=== PATIENT | male | born 2000 | race Two or more races ===

== ENCOUNTER 2024-04-22 22:41 | Emergency (ER) | payer MEDICAID, SELFPAY ==
[2024-04-22 22:44] VITALS: BMI 24.7
[2024-04-22 23:39] VITALS: BP 130/86; PULSE 85; RESP 18; TEMP 36.6; O2SAT 98
--- NOTE | 2024-04-22 23:54 | PD.EDNV ---
Nausea/Vomit./Diarrhea-RME/HPI General Chief complaint: Nausea/Vomiting/Diarrhea Stated complaint: NV and numbness to right arm x 20 min ago. Time Seen by Provider: 04/22/24 23:27 Source: patient Arrival date/time: 04/22/24 22:41 23-year-old male past medical history of anxiety presents emergency department complaining of nausea vomiting and intermittent numbness to right arm that occurred 20 minutes ago. Patient reports has had similar episodes in the past but it has been a year since previous episode. Patient denies any fever, chills, diarrhea, chest pain, shortness of breath, cough, or any other associated symptom. Mode of arrival: ambulatory Limitations: no limitations Related Data Previous Rx's ?Medication ?Instructions ?Recorded cephalexin 500 mg capsule 500 mg PO QID #40 caps 05/12/23 potassium chloride 20 mEq 40 meq (2 x 20 mEq) PO BID #10 tabs 05/12/23 tablet,extended release naproxen 500 mg tablet 500 mg PO BID PRN pain #30 tabs 09/09/23 ibuprofen 800 mg tablet 800 mg PO Q8H PRN pain #20 tabs 09/10/23 metformin 500 mg tablet 500 mg PO BID #30 tabs 10/20/23 ibuprofen 600 mg tablet 600 mg PO Q8H PRN fever or pain 12/01/23 #30 tabs nirmatrelvir 300 mg (150 mg See Rx Instructions PO .COMPLEX 12/01/23 x2)-ritonavir 100 mg tablet,dose #30 tabs pack (Paxlovid) ondansetron 4 mg disintegrating 4 mg PO Q8H PRN nausea and 04/23/24 tablet vomiting #7 tabs Allergies Allergy/AdvReac Type Severity Reaction Status Date / Time No Known Allergies Allergy Verified 12/01/23 15:53 Review of Systems Review of Systems Systems Reviewed: All systems reviewed, normal except as documented Constitutional Constitutional: Reports system reviewed and no additional complaints, except as documented, Denies body ache(s), Denies chills and Denies fever(s) Eyes Eyes: Reports system reviewed and no additional complaints, except as documented and Denies change in vision ENT Ears, Nose, Mouth, and Throat: Reports system reviewed and no additional complaints, except as documented, Denies disequilibrium, Denies dizziness, Denies sore throat and Denies vertigo Cardiovascular Cardiovascular: Reports system reviewed and no additional complaints, except as documented, Denies chest pain and Denies dyspnea Respiratory Respiratory: Reports system reviewed and no additional complaints, except as documented, Denies chest congestion, Denies cough and Denies dyspnea Gastrointestinal Gastrointestinal: Reports system reviewed and no additional complaints, except as documented, Denies abdominal pain, Reports nausea and Reports vomiting Musculoskeletal Musculoskeletal: Reports system reviewed and no additional complaints, except as documented, Denies abnormal gait, Denies arthralgias and Reports numbness Integumentary/Breasts Skin/Breast: Reports system reviewed and no additional complaints, except as documented, Denies erythema, Denies rash and Denies wounds Neurologic Neurologic: Reports system reviewed and no additional complaints, except as documented, Denies abnormal gait, Denies disequilibrium, Denies dizziness, Reports numbness and Denies vertigo Past Medical History Past Medical History CARDIAC: Negative Congestive Heart Failure RESPIRATORY: Negative Chronic Obstructive Pulmonary Disease (COPD) GENITOURINARY: Negative Renal Disease ENDOCRINE: Negative Diabetes Mellitus Type 1 or Diabetes Mellitus Type 2 PSYCHO/SOCIAL: Positive Anxiety Social History SMOKING STATUS: Never smoker ED Exam General Limitations: Present no limitations General appearance: Present alert and in no apparent distress Head Head exam: Present atraumatic Eye Eye exam: Present normal appearance, PERRL and EOMI ENT ENT exam: Present normal exam, normal oropharynx and mucous membranes moist Neck Neck exam: Present normal inspection, full ROM and trachea midline Chest Chest inspection: Present normal inspection and symmetric chest wall rise Respiratory Respiratory exam: Present normal lung sounds bilaterally Cardiovascular Cardiovascular exam: Present regular rate, normal rhythm and normal heart sounds Abdominal Exam Abdominal exam: Present soft and normal bowel sounds Extremities Exam Extremities exam: Present normal inspection and full ROM Back Exam Back exam: Present normal inspection and full ROM Neurological Exam Neurological exam: Present alert, oriented X3 and CN II-XII intact Psychiatric Psychiatric exam: Present normal affect and normal mood Skin Skin exam: Present warm, dry, intact and normal color Course Quality Measures none Orders Category Date Time Status Bedside Influenza A&B Antigen Test NOW Care 04/22/24 23:53 Completed Ondansetron Odt [Zofran Odt] Med 04/22/24 23:57 Discontinued 4 mg PO X1 ONE Vital Signs Vital signs: Vital Signs Temperature 98 F 04/22/24 23:39 Pulse Rate 85 04/22/24 23:39 Respiratory Rate 18 04/22/24 23:39 Blood Pressure 130/86 H 04/22/24 23:39 Pulse Oximetry (%) 98 04/22/24 23:39 Oxygen Delivery Method Room Air 04/22/24 23:39 98% room air within normal limits Nausea/Vomiting/Diarrhea MDM Narrative MDM Narrative:: 23-year-old male past medical history of anxiety presents emergency department complaining of nausea vomiting and intermittent numbness to right arm that occurred 20 minutes ago. Patient reports has had similar episodes in the past but it has been a year since previous episode. Patient denies any fever, chills, diarrhea, chest pain, shortness of breath, cough, or any other associated symptom. Patient appears nontoxic and is hemodynamic stable. Limits his lungs on auscultation. Abdomen is soft and nontender. Patient likely has viral gastroenteritis. Patient data External records reviewed:: [facility] previous records Clinical information provided by:: patient Social determinants that could affect healthcare access:: none Patient has the following chronic illnesses:: Anxiety How is presenting disease/condition affected by chronic disease/condition?: exacerbated by Evaluation data The following diagnostics were reviewed and interpreted by me:: lab results Lab and/or radiology exams considered but not ordered:: Ordered Interpretation Summary: Interpreted by me Medications / Prescriptions Medications / Prescriptions considered but not ordered:: N/A Medication administrations:: Medication Administration History Discontinued Medications Ondansetron HCl (Ondansetron Odt 4 Mg Tabrap) 4 mg PO X1 ONE; Protocol Stop: 04/22/24 23:58 N/A Consultations Consultation(s) initiated? (list below): No Diagnosis Nausea Differential Diagnosis: traveler's diarrhea, food poisoning, gastroenteritis and dehydration Most likely diagnosis given after review of the tests above:: Viral gastroenteritis Admission Indicated Admission indicated?: not indicated Admission Request Was there a request for admission?: No Disposition Plan Disposition Plan: Discharge Discharge Attestation Discharge Attestation: The patient and all family members were given an opportunity to ask questions and understood the discharge instructions. Discharge instructions specifically effects, indications for sooner follow up or return to the emergency department, and the expected course of current diagnosis. Patient condition: Stable Discharge Plan Plan Patient Disposition: HOME (Self Care) Disposition Comment: Stable Prescriptions/Referrals Prescriptions/Med Rec: New ondansetron 4 mg tablet,disintegrating 4 mg PO Q8H PRN (Reason: nausea and vomiting) Qty: 7 0RF No Action naproxen 500 mg tablet 500 mg PO BID PRN (Reason: pain) Qty: 30 0RF metformin 500 mg tablet 500 mg PO BID Qty: 30 1RF Paxlovid 300 mg (150 mg x 2)-100 mg tablets,dose pack See Rx Instructions .ROUTE .COMPLEX Qty: 30 0RF Rx Instructions: take TWO 150 mg tablets of nirmatrelvir with ONE 100 mg tablet of ritonavir twice daily for 5 days ibuprofen 600 mg tablet 600 mg PO Q8H PRN (Reason: fever or pain) Qty: 30 0RF cephalexin 500 mg capsule 500 mg PO QID Qty: 40 0RF potassium chloride 20 mEq tablet extended release 40 meq PO BID Qty: 10 0RF ibuprofen 800 mg tablet 800 mg PO Q8H PRN (Reason: pain) Qty: 20 0RF Referrals: Binh Brown MD [Primary Care Provider] - In 1 week Problem List Clinical Impression: Viral gastroenteritis Patient/Caregiver Discharge Instructions Discharge Activity: activity as tolerated Education Materials: ED Gastroenteritis, Viral (Adult) Additional Instructions: Drink plenty of fluids and get plenty of rest. Take Zofran as needed for any nausea or vomiting. Follow-up with primary care provider in 2 to 3 days. Return to emergency department for any worsening symptoms or as needed. Print Language: [place] Islander Stand Alone Forms: [facility] Award Info., Patient Portal Info Letter PA/BABY NURSE Supervising Physician VLAD/FER Supervising Physician: Dr. Sahu
[2024-04-23] MEDS: ONDANSETRON ODT 4 MG TABRAP PO (00:47)
== END 2024-04-23 01:20 | disposition home or self-care (01) ==
PROVIDERS: Emergency Provider Emergency Medicine; PCP Family Medicine
DX: A08.4 Viral intestinal infection, unspecified (principal)
CPT/HCPCS: 87400; 99283; Q0162

== ENCOUNTER 2024-05-04 18:12 | Emergency (ER) | payer MEDICAID, SELFPAY ==
[2024-05-04 18:15] VITALS: BMI 20.8
[2024-05-04 18:18] VITALS: PULSE 140
[2024-05-04 18:23] VITALS: BP 176/82; PULSE 134; RESP 18; TEMP 36.8; O2SAT 99
[2024-05-04 18:42] VITALS: BP 138/71; PULSE 144; RESP 20; TEMP 36.6; O2SAT 99
--- NOTE | 2024-05-04 18:42 | EKG_ITS ---
[facility] Test Date: 2024-05-04 Pat Name: KAMRAN ENGEL Department: Room: - Gender: Male [employer]: : 2000 Requested By: Shoaib Pardo Order Number: [id number] Reading MD: Shoaib Pardo Measurements Intervals [place] Rate: 135 P: 17 OK: 135 QRS: 93 QRSD: 98 T: 33 QT: 305 QTc: 457 Interpretive Statements SINUS TACHYCARDIA BORDERLINE RIGHT AXIS DEVIATION [QRS AXIS > 90] ABNORMAL RHYTHM ECG Compared to ECG 08/31/2023 13:50:51 No significant changes /store/S0/[id number].pdf
--- NOTE | 2024-05-04 18:43 | EDNOTE_ITS ---
ED Anxiety RME/HPI General Chief Complaint: Anxiety Stated Complaint: ANXIETY Time Seen by Provider: 05/04/24 18:36 Arrival date/time: 05/04/24 18:12 RME / HPI RME / HPI narrative: 24-year-old male patient with significant history of anxiety in the past, came in for evaluation regarding palpitation. Patient told me that he has been having palpitation, jittery, and abdominal discomfort has been ongoing for the last several hours. Patient denies any alcohol abuse denies any use of drugs. Denies any fever denies any cough denies any other complaints patient was taken prior to arrival. Related Data Previous Rx's ?Medication ?Instructions ?Recorded cephalexin 500 mg capsule 500 mg PO QID #40 caps 05/12/23 potassium chloride 20 mEq 40 meq (2 x 20 mEq) PO BID #10 tabs 05/12/23 tablet,extended release naproxen 500 mg tablet 500 mg PO BID PRN pain #30 tabs 09/09/23 ibuprofen 800 mg tablet 800 mg PO Q8H PRN pain #20 tabs 09/10/23 metformin 500 mg tablet 500 mg PO BID #30 tabs 10/20/23 ibuprofen 600 mg tablet 600 mg PO Q8H PRN fever or pain 12/01/23 #30 tabs nirmatrelvir 300 mg (150 mg See Rx Instructions PO .COMPLEX 12/01/23 x2)-ritonavir 100 mg tablet,dose #30 tabs pack (Paxlovid) ondansetron 4 mg disintegrating 4 mg PO Q8H PRN nausea and 04/23/24 tablet vomiting #7 tabs lorazepam 0.5 mg tablet (Ativan) 0.5 mg PO BID PRN anxiety #15 tabs 05/04/24 Allergies Allergy/AdvReac Type Severity Reaction Status Date / Time No Known Allergies Allergy Verified 05/04/24 18:16 Review of Systems Review of Systems Narrative Review of Systems: Review of system reviewed and within normal limits except mentioned in HPI ED Exam Narrative Physical exam: VITAL SIGNS: Reviewed. GENERAL APPEARANCE: Alert and interactive, follows commands, no acute distress, anxious, jittery HEAD AND FACE: Non-traumatic. ENT: PERRL, pink conjunctivitis, eyelid no trauma, Mucous membrane moist. NECK: Supple, nontender, no nuchal rigidity. CHEST: No tenderness, no crepitus, no paradoxical movement, no retractions. LUNGS: Clear, well ventilated, symmetric, no rales, no wheezing, no ronchi, no stridor, good breath sounds bilaterally. HEART: tachycardia, no murmur, no gallops. ABDOMEN: Soft, positive bowel sounds, nondistended, no guarding, nontender, no rebound, no masses, RECTAL: Deferred. GENITAL: Deferred. NEUROLOGICAL: Gross motor function intact sensory function intact, Appropriate for age. MUSCULOSKELETAL: low back nontender, full range of motion. EXTREMITIES: Nontender, full range of motion. SKIN: Color pink, dry, no rash, no lacerations, no abrasions, no contusions. LYMPHATICS: Deferred. Course Quality Measures none Orders Category Date Time Status EKG (ED ONLY) *Do not use* NOW Care 05/04/24 18:42 Active EKG (ED Only) Stat Exams 05/04/24 18:42 Ordered Alcohol, Blood Medical Stat Lab 05/04/24 18:43 Ordered CBC [CBC] Stat Lab 05/04/24 18:42 Ordered CMP [Comprehensive Metabolic Panel] Stat Lab 05/04/24 18:42 Ordered Drug Screen,Urine Stat Lab 05/04/24 18:42 Ordered UA, C/S IF [Urinalysis, C/S if Indicated] Stat Lab 05/04/24 18:42 Ordered LORazepam [Ativan] Med 05/04/24 18:42 Once 1 mg PO X1 ONE Vital Signs Vital signs: Vital Signs Temperature 98.2 F 05/04/24 18:23 Pulse Rate 134 H 05/04/24 18:23 Respiratory Rate 18 05/04/24 18:23 Blood Pressure 176/82 H 05/04/24 18:23 Pulse Oximetry (%) 99 05/04/24 18:23 Oxygen Delivery Method Room Air 05/04/24 18:23 Anxiety MDM Narrative MDM Narrative: 24-year-old male patient with significant history of anxiety in the past, came in for evaluation regarding palpitation. Patient told me that he has been having palpitation, jittery, and abdominal discomfort has been ongoing for the last several hours. Patient denies any alcohol abuse denies any use of drugs. Denies any fever denies any cough denies any other complaints patient was taken prior to arrival. Patient's workup today all came back normal. Negative for drug, negative for alcohol. EKG also showed sinus tachycardia, ventricular rate of 1 3 5 bpm, no ST segment elevation depression noted. Patient was given Ativan with complete resolution of symptoms. Patient's heart rate was noted to be 110 prior to discharge. Patient appears nontoxic and hemodynamically stable. Patient discharged home and instructed to follow-up with primary care provider in 24 to 48 hours. Instructed to return to the emergency department immediately if worsening of symptoms Patient data External records reviewed:: None Clinical information provided by:: patient Social determinants that could affect healthcare access:: none Patient has the following chronic illnesses:: History of anxiety How is presenting disease/condition affected by chronic disease/condition?: exacerbated by Evaluation data The following diagnostics were reviewed and interpreted by me:: lab results and EKG tracing(s) Lab and/or radiology exams considered but not ordered:: None Interpretation Summary: See results in MDM. EKG showed sinus tachycardia, ventricular rate of 135 bpm, no ST segment elevation depression noted. Medications / Prescriptions Medications or Prescriptions considered but not ordered:: None Medication administrations:: Ativan and hydroxyzine Consultations Consultation(s) initiated? (list below): No Diagnosis Differential diagnosis anxiety: hyperventilation, panic disorder and acute anxiety Most likely diagnosis given after review of the tests above:: anxiety Admission Indicated Admission indicated?: not indicated Explain why admission is indicated or not indicated:: Stable Admission Request Was there a request for admission?: No Disposition Plan Disposition Plan: Discharge Discharge Attestation Discharge Attestation: The patient and all family members were given an opportunity to ask questions and understood the discharge instructions. Discharge instructions specifically effects, indications for sooner follow up or return to the emergency department, and the expected course of current diagnosis. Patient condition: Stable Discharge Plan Plan Patient Disposition: HOME (Self Care) Disposition Comment: stable Prescriptions/Referrals Prescriptions/Med Rec: New lorazepam [Ativan] 0.5 mg tablet 0.5 mg PO BID PRN (Reason: anxiety) Qty: 15 0RF No Action naproxen 500 mg tablet 500 mg PO BID PRN (Reason: pain) Qty: 30 0RF metformin 500 mg tablet 500 mg PO BID Qty: 30 1RF Paxlovid 300 mg (150 mg x 2)-100 mg tablets,dose pack See Rx Instructions .ROUTE .COMPLEX Qty: 30 0RF Rx Instructions: take TWO 150 mg tablets of nirmatrelvir with ONE 100 mg tablet of ritonavir twice daily for 5 days ibuprofen 600 mg tablet 600 mg PO Q8H PRN (Reason: fever or pain) Qty: 30 0RF cephalexin 500 mg capsule 500 mg PO QID Qty: 40 0RF potassium chloride 20 mEq tablet extended release 40 meq PO BID Qty: 10 0RF ibuprofen 800 mg tablet 800 mg PO Q8H PRN (Reason: pain) Qty: 20 0RF ondansetron 4 mg tablet,disintegrating 4 mg PO Q8H PRN (Reason: nausea and vomiting) Qty: 7 0RF Problem List Clinical Impression: Acute anxiety Patient/Caregiver Discharge Instructions Discharge Activity: activity as tolerated Education Materials: ED Anxiety Reaction Additional Instructions: Thank you for the opportunity for serving you today. You are stable for discharged . You are advised to: Follow-up with your PCP in 1 to 2 days Return to ED for worsening of symptoms Increase oral fluids Take medication as prescribed Print Language: Vietnamese Stand Alone Forms: [facility] Award Info., Patient Portal Info Letter VLAD/FER Supervising Physician VLAD/FER Supervising Physician: MD José Antonio
[2024-05-04] MEDS: LORazepam 0.5 MG TABLET 1 MG PO (18:49)
[2024-05-04 19:06] VITALS: BP 154/83; PULSE 119; RESP 22; TEMP 36.6; O2SAT 99
[2024-05-04 19:13] LABS: Basophils % (Auto) 0 % (0-2.5); Eosinophils % (Auto) 0 % (0-10); Hematocrit 47.1 % (41.0-53.0); Hemoglobin 16.4 g/dL (13.5-16.0); Immature Granulocytes % (Auto) 1 % (0-0); Immature Granulocytes Auto 0.11 Thou/mm3 (0.00-0.00); Lymphocytes # (Auto) 3.7 Thou/mm3 (1.0-4.8); Lymphocytes % (Auto) 20 % (10-50); Mean Corpuscular HGB Conc 34.8 g/dl (31.0-37.0); Mean Corpuscular Hemoglobin 29.9 pg (25.0-35.0); Mean Corpuscular Volume 86 fL (80-100); Monocytes # (Auto) 1.2 Thou/mm3 (0.0-0.8); Monocytes % (Auto) 7 % (0-12); Neutrophils # (Auto) 13.4 Thou/mm3 (1.8-7.7); Neutrophils % (Auto) 73 % (37-80); Nucleated Red Blood Cell % 0 /100 WBC (0); Platelet Count 329 Thou/mm3 (140-440); RDW Standard Deviation 37.9 fL (35.1-43.9); Red Blood Count 5.48 Miln/mm3 (4.50-5.90); White Blood Count 18.5 Thou/mm3 (3.8-10.6)
[2024-05-04 19:30] LABS: Alanine Aminotransferase 29 U/L (10-49); Albumin, Serum 5.2 gm/dL (3.5-5.0); Albumin/Globulin Ratio 1.6 (1.2-2.2); Alcohol, Blood Medical < 3.0 mg/dL (0-10.0); Alkaline Phosphatase 90 U/L (46-116); Anion Gap 12 (7-16); Aspartate Amino Transferase 22 U/L (0-34); BUN/Creatinine Ratio 12 Ratio (12-20); Bilirubin,Total 0.6 mg/dL (0.3-1.2); Blood Urea Nitrogen 12 mg/dL (9-23); Calcium 9.9 mg/dL (8.3-10.6); Calcium (Corrected) 9.9 mg/dL (8.5-10.1); Carbon Dioxide 23.9 mMol/L (20.0-31.0); Chloride 102 mMol/L (98-107); Estimated Creatinine Clearance 101.8 mL/min (>60); Globulin 3.2 gm/dL (2.3-3.5); Glucose 109 mg/dL (74-106); Osmolality,Calculated 276 (275-295); Potassium 3.5 mMol/L (3.4-5.1); Sodium 138 mMol/L (136-145); Total Protein 8.4 gm/dL (5.7-8.2); eGFR > 60 See Note
[2024-05-04 19:40] LABS: Collection Type, Urine Clean Catch; Squamous Epithelial Cell,Urine 0 /hpf (0-5)
[2024-05-04 19:52] LABS: Amphetamine/Methamp Scrn,U Negative (Negative); Barbiturate Screen,Urine Negative (Negative); Benzodiazepines Screen,Urine Negative (Negative); Benzoylecgonine Screen, Ur Negative (Negative); Bilirubin,Urine Negative (Negative); Blood,Urine Negative (Negative); Clarity,Urine Clear (Clear/Hazy); Color,Urine Lt-Yellow (Lt Yel-Yel); Culture Indicated,Urine Not Indicated; Fentanyl Screen,Urine Negative (Negative); Glucose, Urine Negative (Negative); Ketones,Urine Negative (Negative); Leukocyte Esterase,Urine Negative (Negative); Nitrite,Urine Negative (Negative); Opiate Screen,Urine Negative (Negative); Protein,Urine 1+ (Neg - Trace); RBC,Urine 3 /hpf (0-3); Specific Gravity,Urine 1.028 (1.001-1.035); THC Screen,Urine Negative (Negative); Urobilinogen,Urine Negative mg/dL (0.0-1.0); WBC,Urine 1 /hpf (0-5)
== END 2024-05-04 20:42 | disposition home or self-care (01) ==
LOC: SERX 20:47
PROVIDERS: Nurse Practitioner Family; Emergency Provider Emergency Medicine
DX: F41.9 Anxiety disorder, unspecified (principal)
CPT/HCPCS: 36415; 80053; 80307; 80320; 81001; 85025; 93005; 99283; A9270; G0480

== ENCOUNTER 2024-05-26 16:28 | Emergency (ER) | payer MEDICAID, SELFPAY ==
[2024-05-26 16:52] VITALS: BP 138/94; PULSE 137; RESP 19; TEMP 36.5; O2SAT 97; BMI 24.2
--- NOTE | 2024-05-26 17:12 | PD.EDURI ---
Upper Respiratory Inf. RME/HPI General Chief Complaint: Flu Like Symptoms Stated Complaint: FLU EXPOSURE, BODY HURTING Time Seen by Provider: 05/26/24 16:29 Arrival date/time: 05/26/24 16:28 This is a 24-year-old male that comes in with complaints of anxiety, rapid heart rate, nausea vomiting. Patient states child of his has the flu a. Patient states he was feeling better but today got very anxious. Patient states that he drank a lot of alcohol yesterday and does not know if it is anxiety secondary to being hung over. Related Data Previous Rx's ?Medication ?Instructions ?Recorded cephalexin 500 mg capsule 500 mg PO QID #40 caps 05/12/23 potassium chloride 20 mEq 40 meq (2 x 20 mEq) PO BID #10 tabs 05/12/23 tablet,extended release naproxen 500 mg tablet 500 mg PO BID PRN pain #30 tabs 09/09/23 ibuprofen 800 mg tablet 800 mg PO Q8H PRN pain #20 tabs 09/10/23 metformin 500 mg tablet 500 mg PO BID #30 tabs 10/20/23 ibuprofen 600 mg tablet 600 mg PO Q8H PRN fever or pain 12/01/23 #30 tabs nirmatrelvir 300 mg (150 mg See Rx Instructions PO .COMPLEX 12/01/23 x2)-ritonavir 100 mg tablet,dose #30 tabs pack (Paxlovid) ondansetron 4 mg disintegrating 4 mg PO Q8H PRN nausea and 04/23/24 tablet vomiting #7 tabs lorazepam 0.5 mg tablet (Ativan) 0.5 mg PO BID PRN anxiety #15 tabs 05/04/24 ibuprofen 800 mg tablet 800 mg PO Q6H PRN pain #10 tabs 05/26/24 ondansetron HCl 4 mg tablet 4 mg PO Q6H PRN nausea and 05/26/24 vomiting #10 tabs Allergies Allergy/AdvReac Type Severity Reaction Status Date / Time No Known Allergies Allergy Verified 05/26/24 16:31 Review of Systems Review of Systems Systems Reviewed: All systems reviewed, normal except as documented Past Medical History Past Medical History CARDIAC: Negative Congestive Heart Failure RESPIRATORY: Negative Chronic Obstructive Pulmonary Disease (COPD) GENITOURINARY: Negative Renal Disease ENDOCRINE: Negative Diabetes Mellitus Type 1 or Diabetes Mellitus Type 2 PSYCHO/SOCIAL: Positive Anxiety Social History SMOKING STATUS: Never smoker ED Exam General General appearance: Present alert and in no apparent distress Head Head exam: Present atraumatic Eye Eye exam: Present normal appearance, PERRL and EOMI ENT ENT exam: Present normal exam, normal oropharynx and mucous membranes moist Neck Neck exam: Present normal inspection, full ROM and trachea midline Chest Chest inspection: Present normal inspection and symmetric chest wall rise Respiratory Respiratory exam: Present normal lung sounds bilaterally Cardiovascular Cardiovascular exam: Present regular rate Abdominal Exam Abdominal exam: Present soft Extremities Exam Extremities exam: Present normal inspection and full ROM Back Exam Back exam: Present normal inspection and full ROM Neurological Exam Neurological exam: Present alert, oriented X3 and CN II-XII intact Psychiatric Psychiatric exam: Present normal affect and normal mood Skin Skin exam: Present warm, dry, intact and normal color Course Quality Measures none Orders Category Date Time Status Acetaminophen Tab [Tylenol ES Tab] Med 05/26/24 17:13 Discontinued 1,000 mg PO X1 ONE Diazepam [Valium] Med 05/26/24 17:13 Discontinued 5 mg PO X1 ONE Ibuprofen Tab [Motrin Tab] Med 05/26/24 17:13 Discontinued 800 mg PO X1 ONE Ondansetron Odt [Zofran Odt] Med 05/26/24 17:14 Discontinued 4 mg PO X1 ONE Vital Signs Vital signs: Vital Signs Temperature 97.7 F 05/26/24 16:52 Pulse Rate 137 H 05/26/24 16:52 Respiratory Rate 19 05/26/24 16:52 Blood Pressure 138/94 H 05/26/24 16:52 Pulse Oximetry (%) 97 05/26/24 16:52 Oxygen Delivery Method Room Air 05/26/24 16:52 Upper Respiratory Infection MDM Narrative MDM Narrative:: I spoke to patient at length. I explained to him that it is likely an anxiety attack along with being sick with likely the flu since his child has the flu. Patient also reports that he drank alcohol yesterday likely could be that he is hung over. Patient told to drink plenty of fluids. Patient was given Valium, ibuprofen, Zofran and Tylenol. Patient reports he is feeling better. Patient told to follow-up with primary provider in 1 to 2 days. Come back to the emergency room if symptoms change or worsen. Patient data External records reviewed:: [facility] previous records Clinical information provided by:: patient Social determinants that could affect healthcare access:: none Patient has the following chronic illnesses:: none How is presenting disease/condition affected by chronic disease/condition?: no chronic disease Evaluation data The following diagnostics were reviewed and interpreted by me:: other (specify) (none ) Lab and/or radiology exams considered but not ordered:: none Interpretation Summary: seenote Medications / Prescriptions Medications or Prescriptions considered but not ordered:: none Medication administrations:: Medication Administration History Discontinued Medications Acetaminophen (Acetaminophen 500 Mg Tablet) 1,000 mg PO X1 ONE Stop: 05/26/24 17:14 Last Admin: 05/26/24 17:22 Dose: 1,000 mg Documented By: ADITHYA Diazepam (Diazepam 5 Mg Tablet) 5 mg PO X1 ONE Stop: 05/26/24 17:14 Last Admin: 05/26/24 17:22 Dose: 5 mg Documented By: ADITHYA Ibuprofen (Ibuprofen Tab 400 Mg Tablet) 800 mg PO X1 ONE Stop: 05/26/24 17:14 Last Admin: 05/26/24 17:23 Dose: 800 mg Documented By: ADITHYA Ondansetron HCl (Ondansetron Odt 4 Mg Tabrap) 4 mg PO X1 ONE; Protocol Stop: 05/26/24 17:15 Last Admin: 05/26/24 17:23 Dose: 4 mg Documented By: ADITHYA connolly Consultations Consultation(s) initiated? (list below): No Diagnosis Upper Respiratory Differential Diagnosis: upper respiratory infection, otitis media, sinusitis, viral infection, influenza, pharyngitis and other (anxiety ) Most likely diagnosis given after review of the tests above:: influenza and anxiety Admission Indicated Admission indicated?: not indicated Admission Request Was there a request for admission?: No Disposition Plan Disposition Plan: Discharge Discharge Attestation Discharge Attestation: The patient and all family members were given an opportunity to ask questions and understood the discharge instructions. Discharge instructions specifically effects, indications for sooner follow up or return to the emergency department, and the expected course of current diagnosis. Patient condition: Stable Discharge Plan Plan Patient Disposition: HOME (Self Care) Patient condition on transfer: Stable Prescriptions/Referrals Prescriptions/Med Rec: New ibuprofen 800 mg tablet 800 mg PO Q6H PRN (Reason: pain) Qty: 10 0RF ondansetron HCl 4 mg tablet 4 mg PO Q6H PRN (Reason: nausea and vomiting) Qty: 10 0RF No Action naproxen 500 mg tablet 500 mg PO BID PRN (Reason: pain) Qty: 30 0RF metformin 500 mg tablet 500 mg PO BID Qty: 30 1RF Paxlovid 300 mg (150 mg x 2)-100 mg tablets,dose pack See Rx Instructions .ROUTE .COMPLEX Qty: 30 0RF Rx Instructions: take TWO 150 mg tablets of nirmatrelvir with ONE 100 mg tablet of ritonavir twice daily for 5 days ibuprofen 600 mg tablet 600 mg PO Q8H PRN (Reason: fever or pain) Qty: 30 0RF cephalexin 500 mg capsule 500 mg PO QID Qty: 40 0RF potassium chloride 20 mEq tablet extended release 40 meq PO BID Qty: 10 0RF ibuprofen 800 mg tablet 800 mg PO Q8H PRN (Reason: pain) Qty: 20 0RF ondansetron 4 mg tablet,disintegrating 4 mg PO Q8H PRN (Reason: nausea and vomiting) Qty: 7 0RF lorazepam [Ativan] 0.5 mg tablet 0.5 mg PO BID PRN (Reason: anxiety) Qty: 15 0RF Problem List Clinical Impression: Vomiting, Anxiety Patient/Caregiver Discharge Instructions Discharge Activity: activity as tolerated Education Materials: Treating Anxiety Disorders ..., ED Vomiting (Adult) Additional Instructions: Follow-up with primary provider in 1 to 2 days. Come back to the emergency room if symptoms change or worsen. Drink plenty of fluids. Print Language: Croatian Stand Alone Forms: Tanvi Award Info., Patient Portal Info Letter PA/DISHROOM ATTENDANT Supervising Physician PA/DISHROOM ATTENDANT Supervising Physician: shira
[2024-05-26] MEDS: DIAZEPAM 5 MG TABLET PO (17:22)
[2024-05-26] MEDS: ACETAMINOPHEN 500 MG TABLET 1000 MG PO (17:22)
[2024-05-26] MEDS: ONDANSETRON ODT 4 MG TABRAP PO (17:23)
[2024-05-26] MEDS: IBUPROFEN TAB 400 MG TABLET 800 MG PO (17:23)
[2024-05-26 17:59] VITALS: BP 126/78; PULSE 78; RESP 20; TEMP 37.1; O2SAT 99
== END 2024-05-26 18:02 | disposition home or self-care (01) ==
PROVIDERS: Emergency Provider Emergency Medicine; PCP Family Medicine
DX: F41.9 Anxiety disorder, unspecified (principal); R11.2 Nausea with vomiting, unspecified
CPT/HCPCS: 99282; Q0162; A9270

== ENCOUNTER 2024-06-18 12:10 | Emergency (ER) | payer MEDICAID, SELFPAY ==
[2024-06-18 12:21] VITALS: BMI 25.0
[2024-06-18 12:33] VITALS: BP 146/72; PULSE 144; RESP 22; TEMP 36.6; O2SAT 98
--- NOTE | 2024-06-18 12:51 | EKG_ITS ---
[facility] Test Date: 2024-06-18 Pat Name: KAMRAN ENGEL Department: Room: - Gender: Male Compliance Intern: : 2000 Requested By: Gurdeep Uribe Order Number: [id number] Reading MD: Gurdeep Uribe Measurements Intervals [employer] Rate: 145 P: 35 [place]: 118 QRS: 97 QRSD: 86 T: 28 QT: 289 QTc: 450 Interpretive Statements SINUS TACHYCARDIA WITH SHORT [place] INTERVAL, POSSIBLE ATRIAL FLUTTER BORDERLINE RIGHT AXIS DEVIATION [QRS AXIS > 90] ABNORMAL RHYTHM ECG Compared to ECG 05/04/2024 18:46:05 No significant changes /store/S0/[id number].pdf
--- NOTE | 2024-06-18 12:51 | XR_ITS ---
EXAMINATION: XR chest 2V ORDERING PROVIDER: FER Brice HISTORY: Chest Pain TECHNIQUE: PA and Lateral radiographs of the chest. COMPARISON: 12/01/2023, chest radiographs. FINDINGS: Lungs: Clear. Pleura: No pneumothorax or pleural effusion. Cardiomediastinal Silhouette: Normal. Soft Tissues/Bones: Normal. IMPRESSION: No acute pulmonary findings.
--- NOTE | 2024-06-18 12:51 | PD.EDRME ---
Rapid Medical Screening Exam RME Arrival date/time: 06/18/24 12:10 24-year-old male with history of anxiety, presents to the emergency room with a chief complaint of palpitations and sternal chest pain x 1 day. I have greeted and performed a focused initial assessment of this patient. A comprehensive ED assessment and evaluation of the patient, analysis of all test results, and completion of the medical decision making process will be conducted by additional ED providers. Vital signs: Vital Signs Temperature 97.9 F 06/18/24 12:33 Pulse Rate 144 H 06/18/24 12:33 Respiratory Rate 22 H 06/18/24 12:33 Blood Pressure 146/72 H 06/18/24 12:33 Pulse Oximetry (%) 98 06/18/24 12:33 Oxygen Delivery Method Room Air 06/18/24 12:33 Vital signs reviewed by provider: Yes
[2024-06-18 13:28] LABS: Basophils % (Auto) 0 % (0-2.5); Eosinophils % (Auto) 0 % (0-10); Hematocrit 47.9 % (41.0-53.0); Hemoglobin 16.7 g/dL (13.5-16.0); Immature Granulocytes % (Auto) 1 % (0-0); Immature Granulocytes Auto 0.07 Thou/mm3 (0.00-0.00); Lymphocytes # (Auto) 2.6 Thou/mm3 (1.0-4.8); Lymphocytes % (Auto) 19 % (10-50); Mean Corpuscular HGB Conc 34.9 g/dl (31.0-37.0); Mean Corpuscular Hemoglobin 29.8 pg (25.0-35.0); Mean Corpuscular Volume 86 fL (80-100); Monocytes # (Auto) 0.7 Thou/mm3 (0.0-0.8); Monocytes % (Auto) 5 % (0-12); Neutrophils # (Auto) 10.3 Thou/mm3 (1.8-7.7); Neutrophils % (Auto) 75 % (37-80); Nucleated Red Blood Cell % 0 /100 WBC (0); Platelet Count 351 Thou/mm3 (140-440); RDW Standard Deviation 38.7 fL (35.1-43.9); White Blood Count 13.8 Thou/mm3 (3.8-10.6)
[2024-06-18 13:44] LABS: Alanine Aminotransferase 31 U/L (10-49); Albumin, Serum 5.1 gm/dL (3.5-5.0); Albumin/Globulin Ratio 1.5 (1.2-2.2); Alkaline Phosphatase 82 U/L (46-116); Anion Gap 11 (7-16); Aspartate Amino Transferase 30 U/L (0-34); BUN/Creatinine Ratio 10 Ratio (12-20); Bilirubin,Total 0.8 mg/dL (0.3-1.2); Blood Urea Nitrogen 9 mg/dL (9-23); Calcium 9.7 mg/dL (8.3-10.6); Calcium (Corrected) 9.7 mg/dL (8.5-10.1); Carbon Dioxide 24.2 mMol/L (20.0-31.0); Chloride 104 mMol/L (98-107); Creatinine (Component) 0.9 mg/dL (0.6-1.3); Estimated Creatinine Clearance 124.6 mL/min (>60); Globulin 3.3 gm/dL (2.3-3.5); Glucose 97 mg/dL (74-106); Osmolality,Calculated 276 (275-295); Potassium 3.5 mMol/L (3.4-5.1); Sodium 139 mMol/L (136-145); Total Protein 8.4 gm/dL (5.7-8.2); Troponin I < 0.002 ng/mL (0.0-0.045); eGFR > 60 See Note
[2024-06-18 14:06] LABS: B-Type Natriuretic Peptide < 20 pg/mL (0-100)
== END 2024-06-18 15:45 | disposition left against medical advice (07) ==
PROVIDERS: Nurse Practitioner Family; Emergency Provider Emergency Medicine; PCP Family Medicine
DX: R07.2 Precordial pain (principal); R00.2 Palpitations; F41.9 Anxiety disorder, unspecified; Z53.29 Procedure and treatment not carried out because of patient's decision for other reasons
CPT/HCPCS: 36415; 71046; 80053; 80307; 81001; 83735; 83880; 84484; 85025; 93005; 99281

== ENCOUNTER 2024-07-01 15:00 | Emergency (ER) | payer MEDICAID, SELFPAY ==
[2024-07-01 15:23] VITALS: BP 137/80; PULSE 154; RESP 20; TEMP 37.3; O2SAT 98; BMI 25.2
--- NOTE | 2024-07-01 15:26 | EKG_ITS ---
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
--- NOTE | 2024-07-01 15:26 | XR_ITS ---
Examination: PA chest single view TECHNIQUE: Upright PA chest single view Exam date and time: July 01, 2024 1436 hours Comparison June 18, 2024 INDICATIONS: Chest pain today FINDINGS: Normal heart size. Lungs are clear. Osseous structures are intact. IMPRESSION: No active disease
--- NOTE | 2024-07-01 15:28 | PD.EDRME ---
Rapid Medical Screening Exam RME Arrival date/time: 07/01/24 15:00 Chief Complaint: Flu Like Symptoms Time Seen by Provider: 07/01/24 15:03 Vital signs: Vital Signs Temperature 99.1 F 07/01/24 15:23 Pulse Rate 154 H 07/01/24 15:23 Respiratory Rate 20 07/01/24 15:23 Blood Pressure 137/80 H 07/01/24 15:23 Pulse Oximetry (%) 98 07/01/24 15:23 Oxygen Delivery Method Room Air 07/01/24 15:23 RME Narrative: Chest pain, palpitations, nausea/vomiting and body aches that started today. Hx of EtOH use, reports last drink 12 days ago. Typically drinks 1-2 packs of beer/d.
[2024-07-01 15:45] LABS: Basophils % (Auto) 0 % (0-2.5); Eosinophils # (Auto) 0.1 Thou/mm3 (0.0-0.5); Eosinophils % (Auto) 1 % (0-10); Hematocrit 48.4 % (41.0-53.0); Hemoglobin 16.8 g/dL (13.5-16.0); Immature Granulocytes % (Auto) 1 % (0-0); Immature Granulocytes Auto 0.07 Thou/mm3 (0.00-0.00); Lymphocytes # (Auto) 2.8 Thou/mm3 (1.0-4.8); Lymphocytes % (Auto) 24 % (10-50); Mean Corpuscular HGB Conc 34.7 g/dl (31.0-37.0); Mean Corpuscular Volume 86 fL (80-100); Monocytes % (Auto) 8 % (0-12); Neutrophils % (Auto) 67 % (37-80); Nucleated Red Blood Cell % 0 /100 WBC (0); Platelet Count 273 Thou/mm3 (140-440); RDW Standard Deviation 39.3 fL (35.1-43.9); White Blood Count 11.9 Thou/mm3 (3.8-10.6)
[2024-07-01 16:04] LABS: Collection Type, Urine Clean Catch
[2024-07-01 16:10] LABS: Alanine Aminotransferase 41 U/L (10-49); Albumin, Serum 5.2 gm/dL (3.5-5.0); Albumin/Globulin Ratio 1.7 (1.2-2.2); Alcohol, Blood Medical < 3.0 mg/dL (0-10.0); Alkaline Phosphatase 90 U/L (46-116); Anion Gap 10 (7-16); Aspartate Amino Transferase 32 U/L (0-34); BUN/Creatinine Ratio 11 Ratio (12-20); Bilirubin,Total 0.5 mg/dL (0.3-1.2); Blood Urea Nitrogen 12 mg/dL (9-23); Calcium 10.2 mg/dL (8.3-10.6); Calcium (Corrected) 10.2 mg/dL (8.5-10.1); Carbon Dioxide 25.4 mMol/L (20.0-31.0); Chloride 104 mMol/L (98-107); Creatinine (Component) 1.1 mg/dL (0.6-1.3); Estimated Creatinine Clearance 101.9 mL/min (>60); Free T4 (Free Thyroxine) 1.59 ng/dL (0.89-1.76); Globulin 3.1 gm/dL (2.3-3.5); Glucose 115 mg/dL (74-106); Magnesium 1.9 mg/dL (1.6-2.6); Osmolality,Calculated 278 (275-295); Potassium 3.6 mMol/L (3.4-5.1); Sodium 139 mMol/L (136-145); Thyroid Stimulating Hormone 0.23 uIU/mL (0.55-4.78); Total Protein 8.3 gm/dL (5.7-8.2); Troponin I < 0.002 ng/mL (0.0-0.045); eGFR > 60 See Note
[2024-07-01 16:22] LABS: Bilirubin,Urine Negative (Negative); Blood,Urine Negative (Negative); Clarity,Urine Clear (Clear/Hazy); Color,Urine Lt-Yellow (Lt Yel-Yel); Glucose, Urine Negative (Negative); Ketones,Urine Negative (Negative); Leukocyte Esterase,Urine Negative (Negative); Nitrite,Urine Negative (Negative); PH,Urine 6.5 (5.0-7.0); Protein,Urine Trace (Neg - Trace); RBC,Urine 1 /hpf (0-3); Squamous Epithelial Cell,Urine < 1 /hpf (0-5); Urobilinogen,Urine Negative mg/dL (0.0-1.0); WBC,Urine 1 /hpf (0-5)
[2024-07-01 16:25] LABS: Amphetamine/Methamp Scrn,U Negative (Negative); Barbiturate Screen,Urine Negative (Negative); Benzodiazepines Screen,Urine Negative (Negative); Benzoylecgonine Screen, Ur Negative (Negative); Fentanyl Screen,Urine Negative (Negative); Opiate Screen,Urine Negative (Negative); THC Screen,Urine Negative (Negative)
[2024-07-01 16:58] VITALS: BP 125/83; PULSE 114; RESP 18; TEMP 36.8; O2SAT 98
--- NOTE | 2024-07-01 17:04 | PD.EDURI ---
Upper Respiratory Inf. RME/HPI General Chief Complaint: Flu Like Symptoms Stated Complaint: BODY ACHES SINCE THIS MORNING Time Seen by Provider: 07/01/24 15:03 Arrival date/time: 07/01/24 15:00 24 year old male present to emergency room with c/o of generalized bodyaches since this morning. SEVERITY: Symptoms are described as being severe with limitations on activities of daily living CONTEXT: The patient is unable to identify any inciting events. DURATION/TIMING: The symptoms started approximately this morning ASSOCIATED SYMPTOMS: The patient is unable to identify any other associated symptoms. MODIFYING FACTORS: The patient is unable to identify any alleviating or aggravating symptoms. PERTINENT ROS: no fevers, no cough, no pleuritic pain, no ripping or tearing sensations, denies any lower extremity edema and no unilateral swelling, no chest pain/shortness of breath no nausea,vomiting, diarrhea, no dizziness/headache no rash no loc/syncope episode no abd/back pain no dsyuria,urgency,frequency REVIEW OF SYSTEMS: See History of Present Illness - with the exception of those mentioned in the history of present illness, all other systems reviewed and reported as negative GENERAL: In general the patient is awake, interactive, in an emergency department [facility]. HEAD/EYES/EARS/NOSE/THROAT: normo-cephalic, atraumatic, mucus membranes are moist, anicteric, palpebral conjunctiva is pink, trachea is midline. CARDIOVASCULAR: regular rate and regular rhythm, no murmurs, heart sounds are not distant, strong pulses in all four extremities that are equal and symmetric bilateral upper and lower extremities, normal capillary refill. CHEST/PULMONARY: normal chest rise and fall, good air movement, clear to auscultation bilaterally, normal inspiratory to expiratory ratios without evidence of respiratory distress. NECK: No midline/Paraspinal tenderness, no step off ROM/Strenght intact No Kernig and bruzinski sign. No trauma ABDOMEN: soft, not tender, no masses appreciated BACK: normal range of motion without pain. NEUROLOGICAL: cranio-facial features are symmetric, moves all four extremities equally without obvious limitations or weakness. EXTREMITY: no tenderness to palpation over the long bones or large joints of the bilateral upper and lower extremities, no joint swelling, no joint erythema, no signs of trauma, no unilateral leg swelling and no peripheral edema. SKIN: warm, dry, well-perfused, no jaundice, no rash, no telangiectasias or petechia. PSYCH: calm, cooperative, no evidence of psychosis or agitation RME / HPI RME / HPI Narrative: Chest pain, palpitations, nausea/vomiting and body aches that started today. Hx of EtOH use, reports last drink 12 days ago. Typically drinks 1-2 packs of beer/d. Related Data Previous Rx's ?Medication ?Instructions ?Recorded cephalexin 500 mg capsule 500 mg PO QID #40 caps 05/12/23 potassium chloride 20 mEq 40 meq (2 x 20 mEq) PO BID #10 tabs 05/12/23 tablet,extended release naproxen 500 mg tablet 500 mg PO BID PRN pain #30 tabs 09/09/23 ibuprofen 800 mg tablet 800 mg PO Q8H PRN pain #20 tabs 09/10/23 metformin 500 mg tablet 500 mg PO BID #30 tabs 10/20/23 ibuprofen 600 mg tablet 600 mg PO Q8H PRN fever or pain 12/01/23 #30 tabs nirmatrelvir 300 mg (150 mg See Rx Instructions PO .COMPLEX 12/01/23 x2)-ritonavir 100 mg tablet,dose #30 tabs pack (Paxlovid) ondansetron 4 mg disintegrating 4 mg PO Q8H PRN nausea and 04/23/24 tablet vomiting #7 tabs lorazepam 0.5 mg tablet (Ativan) 0.5 mg PO BID PRN anxiety #15 tabs 05/04/24 ibuprofen 800 mg tablet 800 mg PO Q6H PRN pain #10 tabs 05/26/24 ondansetron HCl 4 mg tablet 4 mg PO Q6H PRN nausea and 05/26/24 vomiting #10 tabs ibuprofen 800 mg tablet (IBU) 800 mg PO TID PRN fever or pain 07/01/24 #30 tabs oseltamivir 75 mg capsule (Tamiflu) 75 mg PO BID 5 days #10 caps 07/01/24 Allergies Allergy/AdvReac Type Severity Reaction Status Date / Time No Known Allergies Allergy Verified 07/01/24 15:04 Course Course Course Narrative: review labs, xray, ekg,UA Patient presenting with influenza like symptoms.? Obtained influenza A/B screen, which revealed positive influenza.? The following were considered in the patient's differential diagnosis but was not deemed to be consistent with patient's history of present illness and/or physical examination; meningitis, pharyngitis, otitis media, pneumonia, urinary tract infection, peritonsillar abscess, retropharyngeal abscess.? As patient does not present with any signs/symptoms of pneumonia or other complications,? Educated patient on diagnosis and natural course of influenza.? Supportive care and preventive measures were discussed.? Continue fluid hydration. Follow up with primary physician in 3-5 days if symptoms continue or new problems arise. Return if having persistent high fever, altered mental status, shortness of breath, uncontrolled vomiting, or other concerns.? ? ?Review xray, labs, urine, no acute findings? Plan:? Prescribed tamiflu, zofran, ibu? Advised patient on support therapies, including rest, advancement of fluids as tolerated, thorough handwashing w/ soap and H2O, taking OTC ibuprofen or acetaminophen as directed, OTC expectorant/antitussive/decongestants as directed. Advised patient to refrain from visiting work, school, or daycares or visiting women, elderly, or those w/ chronic illnesses. Advised patient to return with new or worsening symptoms. Quality Measures none Orders Category Date Time Status Bedside COVID-19 Antigen Test NOW Care 07/01/24 15:26 Active Bedside Influenza A&B Antigen Test NOW Care 07/01/24 15:27 Completed EKG (ED ONLY) *Do not use* NOW Care 07/01/24 15:27 Completed CXR [XR chest 1V] Stat Exams 07/01/24 15:26 Completed EKG (ED Only) Stat Exams 07/01/24 15:26 Draft Alcohol, Blood Medical Stat Lab 07/01/24 15:37 Completed CBC Stat Lab 07/01/24 15:37 Completed CMP [Comprehensive Metabolic Panel] Stat Lab 07/01/24 15:37 Completed Drug Screen,Urine Stat Lab 07/01/24 15:52 Completed Free T4 (Free Thyroxine) Stat Lab 07/01/24 15:37 Completed Mag [Magnesium] Stat Lab 07/01/24 15:37 Completed TSH [Thyroid Stimulating Hormone] Stat Lab 07/01/24 15:37 Completed Troponin I Stat Lab 07/01/24 15:37 Completed UA [Urinalysis] Stat Lab 07/01/24 15:52 Completed Ketorolac Inj [Toradol Inj] Med 07/01/24 17:02 Discontinued 30 mg IVP X1 ONE Oseltamivir [Tamiflu] Med 07/01/24 17:02 Discontinued 75 mg PO X1 ONE Sodium Chloride 0.9% 1000 ml [Ns] 1,000 ml Med 07/01/24 17:02 Discontinued IV 999 mls/hr Reevaluation(s) Reevaluation #1: pt is feeling better and comfortable to go home, first dose of tamiflu given. IV fluids and toradol for pain. discussed tsh is low Vital Signs Vital signs: Vital Signs Temperature 99.1 F 07/01/24 15:23 Pulse Rate 154 H 07/01/24 15:23 Respiratory Rate 20 07/01/24 15:23 Blood Pressure 137/80 H 07/01/24 15:23 Pulse Oximetry (%) 98 07/01/24 15:23 Oxygen Delivery Method Room Air 07/01/24 15:23 Procedures -ED EKG Interpretation #1: Date of EK07/01/24 Rate: 148 Interpretation: Reviewed by me EKG Impression: No acute ST-T changes, No ectopy, No ischemic changes and Sinus tachycardia Upper Respiratory Infection Patient data External records reviewed:: [facility] previous records Clinical information provided by:: patient Social determinants that could affect healthcare access:: none Patient has the following chronic illnesses:: n/a How is presenting disease/condition affected by chronic disease/condition?: no chronic disease Evaluation data The following diagnostics were reviewed and interpreted by me:: lab results, radiology exam(s) and EKG tracing(s) Lab and/or radiology exams considered but not ordered:: n/a Interpretation Summary: cbc/cmp, trop, tsh (low) xray wnl drug/alcohol negative Medications / Prescriptions Medications or Prescriptions considered but not ordered:: n/a Medication administrations:: Medication Administration History Discontinued Medications Sodium Chloride (Ns) 1,000 mls @ 999 mls/hr IV .Q1H1M ONE Stop: 07/01/24 18:02 Ketorolac Tromethamine (Ketorolac Inj 30 Mg/Ml Vial) 30 mg IVP X1 ONE Stop: 07/01/24 17:03 Oseltamivir Phosphate (Oseltamivir 75 Mg Capsule) 75 mg PO X1 ONE Stop: 07/01/24 17:03 n/a Consultations Consultation(s) initiated? (list below): No Diagnosis Upper Respiratory Differential Diagnosis: upper respiratory infection, viral infection, bronchitis, influenza, pharyngitis and other (pna dehydration, anxiety ) Most likely diagnosis given after review of the tests above:: flu Admission Indicated Admission indicated?: not indicated Admission Request Was there a request for admission?: No Disposition Plan Disposition Plan: Discharge Discharge Attestation Discharge Attestation: The patient and all family members were given an opportunity to ask questions and understood the discharge instructions. Discharge instructions specifically effects, indications for sooner follow up or return to the emergency department, and the expected course of current diagnosis. Patient condition: Stable Discharge Plan Plan Patient Disposition: HOME (Self Care) Prescriptions/Referrals Prescriptions/Med Rec: New oseltamivir [Tamiflu] 75 mg capsule 75 mg PO BID 5 Days Qty: 10 0RF ibuprofen [IBU] 800 mg tablet 800 mg PO TID PRN (Reason: fever or pain) Qty: 30 0RF No Action naproxen 500 mg tablet 500 mg PO BID PRN (Reason: pain) Qty: 30 0RF metformin 500 mg tablet 500 mg PO BID Qty: 30 1RF Paxlovid 300 mg (150 mg x 2)-100 mg tablets,dose pack See Rx Instructions .ROUTE .COMPLEX Qty: 30 0RF Rx Instructions: take TWO 150 mg tablets of nirmatrelvir with ONE 100 mg tablet of ritonavir twice daily for 5 days ibuprofen 600 mg tablet 600 mg PO Q8H PRN (Reason: fever or pain) Qty: 30 0RF cephalexin 500 mg capsule 500 mg PO QID Qty: 40 0RF potassium chloride 20 mEq tablet extended release 40 meq PO BID Qty: 10 0RF ibuprofen 800 mg tablet 800 mg PO Q8H PRN (Reason: pain) Qty: 20 0RF ondansetron 4 mg tablet,disintegrating 4 mg PO Q8H PRN (Reason: nausea and vomiting) Qty: 7 0RF lorazepam [Ativan] 0.5 mg tablet 0.5 mg PO BID PRN (Reason: anxiety) Qty: 15 0RF ibuprofen 800 mg tablet 800 mg PO Q6H PRN (Reason: pain) Qty: 10 0RF ondansetron HCl 4 mg tablet 4 mg PO Q6H PRN (Reason: nausea and vomiting) Qty: 10 0RF Referrals: No Primary/Family,Physician [Primary Care Provider] - In 1 week Problem List Clinical Impression: Influenza Patient/Caregiver Discharge Instructions Education Materials: ED Influenza (Adult) Print Language: Pashto Stand Alone Forms: Tan[employer] Award Info., Patient Portal Info Letter
[2024-07-01] MEDS: SODIUM CHLORIDE 0.9% 1000 ML 1,000 ML 999 ML IV (18:15)
[2024-07-01] MEDS: KETOROLAC INJ 30 MG/ML VIAL IVP (19:04)
[2024-07-01] MEDS: OSELTAMIVIR 75 MG CAPSULE PO (19:04)
== END 2024-07-01 19:33 | disposition home or self-care (01) ==
PROVIDERS: Physician Assistant; Emergency Provider Emergency Medicine
DX: J11.1 Influenza due to unidentified influenza virus with other respiratory manifestations (principal); R00.0 Tachycardia, unspecified
CPT/HCPCS: 36415; 71045; 80053; 80307; 80320; 81001; 83735; 84439; 84443; 84484; 85025; 87400; 87811; 93005; 96361; 96374; 99284; J1885; J7030; A9270; G0480

== ENCOUNTER 2024-10-01 17:22 | Inpatient (IN) | payer MEDICAID, SELFPAY ==
[2024-10-01] VITALS (8 sets, daily range): BP systolic 120–149; BP diastolic 66–90; PULSE 86–148; RESP 12–18; TEMP 36.7–37.2; O2SAT 97–99; BMI 26.2
--- NOTE | 2024-10-01 17:42 | EKG_ITS ---
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) Measurements Intervals [place] Rate: 155 P: 17 [place]: 112 QRS: 95 QRSD: 91 T: 38 QT: 260 QTc: 417 Interpretive Statements SINUS TACHYCARDIA WITH SHORT [place] INTERVAL, POSSIBLE ATRIAL FLUTTER BORDERLINE RIGHT AXIS DEVIATION [QRS AXIS > 90] CRITICAL TEST RESULT Compared to ECG 07/01/2024 15:31:56 No significant changes /store/S0/[id number]
--- NOTE | 2024-10-01 17:49 | XR_ITS ---
Examination: PA lateral chest 2 views TECHNIQUE: Upright PA lateral chest 2 views Date and time: October 01, 2024 1758 hours INDICATIONS: Chest pain today FINDINGS: Normal heart size. Lungs are clear. The osseous structures are intact. IMPRESSION: No active disease.
--- NOTE | 2024-10-01 17:50 | PD.EDRME ---
Rapid Medical Screening Exam RME Arrival date/time: 10/01/24 17:22 24-year-old male with history of alcohol abuse and anxiety presents emergency department today for complaint of rapid heartbeat and anxiety Chief Complaint: Anxiety Vital signs: Vital Signs Temperature 98.1 F 10/01/24 17:36 Pulse Rate 148 H 10/01/24 17:36 Respiratory Rate 18 10/01/24 17:36 Blood Pressure 149/90 H 10/01/24 17:36 Pulse Oximetry (%) 99 10/01/24 17:36 Oxygen Delivery Method Room Air 10/01/24 17:36
--- NOTE | 2024-10-01 18:09 | EDNOTE_ITS ---
ED Anxiety RME/HPI General Chief Complaint: Anxiety Stated Complaint: ANXIETY ATTACK; HEART RATE 146 Time Seen by Provider: 10/01/24 18:15 Arrival date/time: 10/01/24 17:22 RME / HPI RME / HPI narrative: 10/01/24 17:22 24-year-old male with history of alcohol abuse and anxiety presents emergency department today for complaint of rapid heartbeat and anxiety ------ This section includes all my notes and documentations, including HPI, PE, and ED course. Quinn Montelongo MD HPI: 24yo male here with possible alcohol withdrawal. Had it in the past and feels similar. Patient has been drinking alcohol heavily for the last one week, reporting his last drink was last night. Patient now has nausea, palpitations, and general malaise. No fever, chills, vomiting, diarrhea or any other associated symptoms. No other complaints reported. ROS: All negative except as documented in HPI. Physical Exam: General:? Alert and oriented.? Severe tremors noted. High BP noted. Eyes:? Conjunctivae and lids clear.? EOMI.? PERRL. ENT:? No nasal congestion.? Pharynx normal.? Tympanic membrane normal bilaterally.??? Neck:? Supple.? No carotid bruit.? No JVD.?? Heart: Sinus tachycardia noted (150 bpm). Lungs:? No respiratory distress.? Good air movement.? No rhonchi, wheezing, rales.?? Chest:? No tenderness. Abdomen:? Soft and nontender.? Normal bowel sounds.? No distension.? No rebound or guarding.?? Back:? No CVA tenderness.?? Legs:? No clubbing, cyanosis, edema.? Skin:? Warm and dry.?? Neuro:? Alert and oriented X 3.? Cranial Nerves II-XII grossly intact.? No peripheral motor deficits. I reviewed all diagnostic test results. My interpretation of the EKG is sinus tachycardia with nonspecific ST-T changes. My interpretation of the chest x-ray is NAD. Blood tests are unremarkable. At this point, diagnoses include alcohol withdrawal. Treatment here included NS, Zofran, Metoprolol, Ativan, and Toradol. Some improvement noted. I discussed the case with our hospitalist. About the presentation and exam and diagnostics and treatments here. And need of further care in the hospital. Will accept the patient. Quinn Montelongo MD Related Data Previous Rx's ?Medication ?Instructions ?Recorded cephalexin 500 mg capsule 500 mg PO QID #40 caps 05/12 potassium chloride 20 mEq 40 meq (2 x 20 mEq) PO BID # 10 tabs 05/12/23 tablet,extended release naproxen 500 mg tablet 500 mg PO BID PRN pain #30 t abs 09/09/23 ibuprofen 800 mg tablet 800 mg PO Q8H PRN pain #20 t abs 09/10/23 metformin 500 mg tablet 500 mg PO BID #30 tabs 10/19 ibuprofen 600 mg tablet 600 mg PO Q8H PRN fever or p ain 12/01/23 #30 tabs nirmatrelvir 300 mg (150 mg See Rx Instructions PO .CO MPLEX 12/01/23 x2)-ritonavir 100 mg tablet,dose #30 tabs pack (Paxlovid) ondansetron 4 mg disintegrating 4 mg PO Q8H PRN nausea and 04/23/24 tablet vomiting #7 tabs lorazepam 0.5 mg tablet (Ativan) 0.5 mg PO BID PRN anx iety #15 tabs 05/04/24 ibuprofen 800 mg tablet 800 mg PO Q6H PRN pain #10 t abs 05/26/24 ondansetron HCl 4 mg tablet 4 mg PO Q6H PRN nausea and 05/26/24 vomiting #10 tabs ibuprofen 800 mg tablet (IBU) 800 mg PO TID PRN fever or pain 07/01/24 #30 tabs Allergies Allergy/AdvReac Type Severity Reaction Status Date / Time No Known Allergies Allergy Verified 10/01/24 17:28 Review of Systems Review of Systems Systems Reviewed: All systems reviewed, normal except as documented Past Medical History Past Medical History CARDIAC: Negative Congestive Heart Failure RESPIRATORY: Negative Chronic Obstructive Pulmonary Disease (COPD) GENITOURINARY: Negative Renal Disease ENDOCRINE: Negative Diabetes Mellitus Type 1 or Diabetes Mellitus Type 2 PSYCHO/SOCIAL: Positive Anxiety Social History SMOKING STATUS: Never smoker ED Exam Narrative Physical exam: As noted in HPI. Course Course Course Narrative: CXR is ordered for determining the etiology of palpitations. Quality Measures none Orders Category Date Time Status EKG (ED ONLY) *Do not use* NOW Care 10/01/24 17:42 Completed Insert IV NOW Care 10/01/24 17:56 Active EKG (ED Only) Stat Exams 10/01/24 17:42 Draft XR chest 2V Stat Exams 10/01/24 17:49 Taken CBC Stat Lab 10/01/24 17:49 Ordered Comprehensive Metabolic Panel Stat Lab 10/01/24 17:49 Ordered Drug Screen,Urine Stat Lab 10/01/24 17:50 Ordered Troponin I Stat Lab 10/01/24 17:49 Ordered LORazepam [Ativan] Med 10/01/24 17:49 Discontinued 0.5 mg PO X1 ONE Sodium Chloride 0.9% 1000 ml [Ns] 1,000 ml Med 10/01/24 17:55 Active IV 999 mls/hr Vital Signs Vital signs: Vital Signs Temperature 98.1 F 10/01/24 17:36 Pulse Rate 148 H 10/01/24 17:36 Respiratory Rate 18 10/01/24 17:36 Blood Pressure 149/90 H 10/01/24 17:36 Pulse Oximetry (%) 99 10/01/24 17:36 Oxygen Delivery Method Room Air 10/01/24 17:36 Anxiety MDM Narrative MDM Narrative: 24yo male here with possible alcohol withdrawal. Had it in the past and feels similar. Patient has been drinking alcohol heavily for the last one week, reporting his last drink was last night. Patient now has nausea, palpitations, and general malaise. No fever, chills, vomiting, diarrhea or any other associated symptoms. No other complaints reported. Patient data External records reviewed:: [facility] previous records (Per chart review, patient was seen here on 07/01/24 for Influenza.) Clinical information provided by:: patient Social determinants that could affect healthcare access:: alcohol use Patient has the following chronic illnesses:: none How is presenting disease/condition affected by chronic disease/condition?: no chronic disease Evaluation data The following diagnostics were reviewed and interpreted by me:: lab results, radiology exam(s) and EKG tracing(s) (My interpretation of the EKG is: Sinus tachycardia (155 bpm) with nonspecific ST-T changes. Quinn Montelongo MD) Lab and/or radiology exams considered but not ordered:: none Interpretation Summary: My interpretation of the EKG is sinus tachycardia with nonspecific ST-T changes. My interpretation of the chest x-ray is NAD. Blood tests are unremarkable. Medications / Prescriptions Medications or Prescriptions considered but not ordered:: none Medication administrations:: Medication Administration History Sodium Chloride (Ns) 1,000 mls @ 999 mls/hr IV .Q1H1M ONE Stop: 10/01/24 18:55 Discontinued Medications Lorazepam (Lorazepam 0.5 Mg Tablet) 0.5 mg PO X1 ONE Stop: 10/01/24 17:50 NS, Zofran, Metoprolol, Ativan, Toradol Consultations Consultation(s) initiated? (list below): No Diagnosis Differential diagnosis anxiety: hyperventilation, panic disorder, acute anxiety and other (TN, alcohol withdrawal, dehydration, electrolyte abnormalities.) Most likely diagnosis given after review of the tests above:: Alcohol withdrawal Admission Indicated Admission indicated?: indicated Explain why admission is indicated or not indicated:: Severe alcohol withdrawal Admission Request Was there a request for admission?: Yes Admission Attestation Admission request attestation: Discussed case with Hospitalist service regarding admission. Discussed patients ED course, exam findings, labs, and radiology results. The Hospitalist [agrees] to accept the patient for admission. Disposition Plan Disposition Plan: Admit Critical Care Time Critical Care Time Critical Care Time: Yes Total Critical Care Time (min.): 36 Attestation: Due to a high probability of clinically significant, life threatening deterioration, the patient required my highest level of preparedness to intervene emergently and I personally spent this critical care time directly and personally managing the patient. This critical care time included obtaining a history; examining the patient; ordering and review of studies; arranging urgent treatment with development of a management plan; evaluation of patient's response to treatment; frequent reassessment; and discussions with family and other providers. It was exclusive of separately billable procedures and treating other patients and teaching time. Quinn Montelongo MD Discharge Plan Plan Patient Disposition: Admit Acute Care w/in Hospital Prescriptions/Referrals Prescriptions/Med Rec: No Action naproxen 500 mg tablet 500 mg PO BID PRN (Reason: pain) Qty: 30 0RF metformin 500 mg tablet 500 mg PO BID Qty: 30 1RF Paxlovid 300 mg (150 mg x 2)-100 mg tablets,dose pack See Rx Instructions .ROUTE .COMPLEX Qty: 30 0RF Rx Instructions: take TWO 150 mg tablets of nirmatrelvir with ONE 100 mg tablet of ritonavir twice daily for 5 days ibuprofen 600 mg tablet 600 mg PO Q8H PRN (Reason: fever or pain) Qty: 30 0RF cephalexin 500 mg capsule 500 mg PO QID Qty: 40 0RF potassium chloride 20 mEq tablet extended release 40 meq PO BID Qty: 10 0RF ibuprofen 800 mg tablet 800 mg PO Q8H PRN (Reason: pain) Qty: 20 0RF ondansetron 4 mg tablet,disintegrating 4 mg PO Q8H PRN (Reason: nausea and vomiting) Qty: 7 0RF lorazepam [Ativan] 0.5 mg tablet 0.5 mg PO BID PRN (Reason: anxiety) Qty: 15 0RF ibuprofen 800 mg tablet 800 mg PO Q6H PRN (Reason: pain) Qty: 10 0RF ondansetron HCl 4 mg tablet 4 mg PO Q6H PRN (Reason: nausea and vomiting) Qty: 10 0RF ibuprofen [IBU] 800 mg tablet 800 mg PO TID PRN (Reason: fever or pain) Qty: 30 0RF Referrals: Binh Brown MD [Primary Care Provider] - In 1 week Problem List Clinical Impression: Alcohol withdrawal Patient/Caregiver Discharge Instructions Print Language: Mozambican Stand Alone Forms: [employer] Award Info., Patient Portal Info Letter
[2024-10-01 18:36] LABS: Basophils % (Auto) 0 % (0-2.5); Eosinophils % (Auto) 0 % (0-10); Hematocrit 47.8 % (41.0-53.0); Hemoglobin 16.5 g/dL (13.5-16.0); Immature Granulocytes % (Auto) 1 % (0-0); Immature Granulocytes Auto 0.04 Thou/mm3 (0.00-0.00); Lymphocytes # (Auto) 1.6 Thou/mm3 (1.0-4.8); Lymphocytes % (Auto) 20 % (10-50); Mean Corpuscular HGB Conc 34.5 g/dl (31.0-37.0); Mean Corpuscular Hemoglobin 30.1 pg (25.0-35.0); Mean Corpuscular Volume 87 fL (80-100); Monocytes % (Auto) 12 % (0-12); Neutrophils # (Auto) 5.4 Thou/mm3 (1.8-7.7); Neutrophils % (Auto) 67 % (37-80); Nucleated Red Blood Cell % 0 /100 WBC (0); Platelet Count 261 Thou/mm3 (140-440); RDW Standard Deviation 40.5 fL (35.1-43.9); Red Blood Count 5.49 Miln/mm3 (4.50-5.90)
[2024-10-01] MEDS: KETOROLAC INJ 30 MG/ML VIAL IVP (18:49)
[2024-10-01] MEDS: LORazepam 2 MG/ML VIAL 1 MG IVP (18:49)
[2024-10-01] MEDS: ONDANSETRON INJ 2 MG/ML INJ 2 ML 4 MG IVP ×2 (18:50→20:20)
[2024-10-01] MEDS: SODIUM CHLORIDE 0.9% 1000 ML 1,000 ML 999 ML IV ×3 (18:50→20:22)
[2024-10-01] MEDS: METOPROLOL TARTRATE 25 MG TABLET 100 MG PO (18:53)
[2024-10-01 18:54] LABS: Partial Thromboplastin Time 26.8 Seconds (22.0-36.0); Prothrombin Time 11.3 Seconds (9.0-12.2)
[2024-10-01 19:00] LABS: Amphetamine/Methamp Scrn,U Negative (Negative); Barbiturate Screen,Urine Negative (Negative); Benzodiazepines Screen,Urine Negative (Negative); Benzoylecgonine Screen, Ur Negative (Negative); Fentanyl Screen,Urine Negative (Negative); Opiate Screen,Urine Negative (Negative); THC Screen,Urine Negative (Negative)
[2024-10-01 19:10] LABS: Acetaminophen < 2.0 mcg/mL (10.0-20.0); Alanine Aminotransferase 21 U/L (10-49); Albumin, Serum 4.9 gm/dL (3.5-5.0); Albumin/Globulin Ratio 1.8 (1.2-2.2); Alcohol, Blood Medical < 3.0 mg/dL (0-10.0); Alkaline Phosphatase 80 U/L (46-116); Amylase 70 U/L (30-118); Anion Gap 10 (7-16); Aspartate Amino Transferase 23 U/L (0-34); BUN/Creatinine Ratio 9 Ratio (12-20); Bilirubin,Direct 0.2 mg/dL (0.0-0.3); Bilirubin,Total 0.7 mg/dL (0.3-1.2); Blood Urea Nitrogen 9 mg/dL (9-23); Calcium 9.9 mg/dL (8.3-10.6); Calcium (Corrected) 9.9 mg/dL (8.5-10.1); Carbon Dioxide 25.4 mMol/L (20.0-31.0); Chloride 101 mMol/L (98-107); Creatine Kinase 132 U/L (34-171); Estimated Creatinine Clearance 108.3 mL/min (>60); Free T4 (Free Thyroxine) 1.47 ng/dL (0.89-1.76); Globulin 2.7 gm/dL (2.3-3.5); Glucose 111 mg/dL (74-106); Lipase 31 U/L (12-53); Magnesium 2.1 mg/dL (1.6-2.6); Osmolality,Calculated 271 (275-295); Salicylate < 3.0 mg/dL; Sodium 136 mMol/L (136-145); Thyroid Stimulating Hormone 0.27 uIU/mL (0.55-4.78); Total Protein 7.6 gm/dL (5.7-8.2); Troponin I < 0.020 ng/mL (0.0-0.045); eGFR > 60 See Note
[2024-10-01] MEDS: THIAMINE INJ 100 MG in SODIUM CHLORIDE 0.9% 100 ML 202 MG IV (20:22)
[2024-10-01] MEDS: LORazepam 2 MG/ML VIAL IVP (20:22)
--- NOTE | 2024-10-01 21:13 | ESHP_ITS ---
<Statement entered by Trent Argueta MD - 10/02/24 06:25> I Trent Argueta MD reviewed the note and agree with the resident's assessment & plan with exceptions as below. I have personally reviewed labs, imaging, home meds/prior records, examined the patient, formulated and discussed management plan with the IM team. A 24-year-old male presented to ED with alcohol withdrawal. Will start on CIWA protocol with lorazepam, provide IV fluid resuscitation along with thiamine and folic acid. Patient is interested in quitting EtOH use and has plans to DQ8 by himself. Extensively counseled regarding substance use. Documentation for date of: 10/01/24 HPI History of Present Illness Chief complaint: Alcohol withdrawal History of present illness: 24-year-old male with past medical history of alcohol use disorder who presents to the ED due to withdrawal-like symptoms. Patient states that he drinks at least a 24 pack of beer every day has recently increased his drinking for the past week. Patient endorsed that he was having some dizziness, palpitations and blurry vision that onset was around 4 PM in the afternoon his last drink was about a day ago 09/30/2024. Patient also states that he felt like he was having anxiety attack felt his heart was racing at that time. In the ED patient was given Ativan due to CIWA score of 15. States feeling improvement with Ativan administration. At this time patient denies any auditory or visual hallucinations, bugs crawling around his skin, chest pain, shortness of breath, nausea, vomiting, sick contacts, recent travel. ED course: ED vitals: BP 149/90, HR 148, saturating 99% room air ED labs: CBC unremarkable, CMP within normal limits, TSH 0.27, free T41.47, U- Tox negative, PMHx: As above SX Hx: Vasectomy Social Hx: Drinks a 24 pack of beer every day last drink was 09/30/2024, denies cigarette use, denies illicit substances including THC FH X: Unknown Review of Systems Review of Systems Systems Reviewed: All systems reviewed, normal except as documented Narrative Review of Systems: All 12 systems reviewed and found negative unless otherwise stated in HPI. Exam Vital Signs Temp Pulse Resp BP Pulse Ox O2 Del Method 98.6 F 105 H 16 129/70 99 Room Air 10/01/24 19:59 10/01/24 19:08 10/01/24 19:08 10/01/24 19:08 10/01/24 19:08 10/01/24 19:08 Narrative Exam Physical Exam GENERAL: NAD, AAOx3 HEENT: Moist mucosa. Eyes open, symmetrical, & clear CARDIO: Heart RRR, no obvious murmurs PULM: No noted coughing/dyspnea CTA B/L, no R/W/R GI: Abdomen soft, nondistended, mild pain on palpation. BSx4 SKIN/MSK/EXT: No wounds/rashes/edema/amputations, no pain on palpation. Pedal pulses present B/L NEURO: AAOx3, no focal neuro deficits, able to move all 4 extremities Results: Labs 10/01/24 18:17 10/01/24 18:17 Labs: Short CBC 10/01/24 Range/Units 18:17 WBC 8.0 (3.8-10.6) Thou/mm3 Hgb 16.5 H (13.5-16.0) g/dL Hct 47.8 (41.0-53.0) % Plt Count 261 (140-440) Thou/mm3 BMP 10/01/24 18:17 Sodium 136 Potassium 4.0 Chloride 101 Carbon Dioxide 25.4 BUN 9 Creatinine 1.0 Glucose 111 H Calcium 9.9 Cardiac Enzymes 10/01/24 Range/Units 18:17 Total Creatine Kinase 132 (34-171) U/L Troponin I < 0.020 (0.0-0.045) ng/mL Liver Function 10/01/24 Range/Units 18:17 Total Bilirubin 0.7 (0.3-1.2) mg/dL Direct Bilirubin 0.2 (0.0-0.3) mg/dL AST 23 (0-34) U/L ALT 21 (10-49) U/L Alkaline Phosphatase 80 (46-116) U/L Albumin 4.9 (3.5-5.0) gm/dL Quality Measures Quality Measures none Medications Home Medications and Allergies Allergies Allergy/AdvReac Type Severity Reaction Status Date / Time No Known Allergies Allergy Verified 10/01/24 17:28 Visit Medications Acetaminophen (Acetaminophen 325 Mg Tablet) 650 mg PO Q6H PRN PRN Reason: Fever >100.4 Stop: 10/31/24 20:49 Acetaminophen (Acetaminophen 325 Mg Tablet) 1,000 mg PO Q6H PRN PRN Reason: PAIN SCALE 1-3 (mild Stop: 10/31/24 20:49 Folic Acid (Folic Acid 1 Mg Tablet) 1 mg PO BID [facility] Stop: 10/06/24 20:59 Sodium Chloride (Ns) 1,000 mls @ 75 mls/hr IV .[id number] ANDREA Stop: 10/31/24 20:59 Lorazepam (Lorazepam 0.5 Mg Tablet) 0.5 mg PO Q4HR PRN PRN Reason: CIWA Score 2-6 Stop: 10/06/24 20:51 Lorazepam (Lorazepam 2 Mg/Ml Vial) 0.5 mg IV Q2HR PRN PRN Reason: CIWA SCORE 7-13 Stop: 10/06/24 20:51 Lorazepam (Lorazepam 2 Mg/Ml Vial) 1 mg IV Q2HR PRN PRN Reason: CIWA SCORE 14-19 Stop: 10/06/24 20:51 Lorazepam (Lorazepam 2 Mg/Ml Vial) 2 mg IV Q2HR PRN PRN Reason: CIWA SCORE 20-25 Stop: 10/06/24 20:51 Ondansetron HCl (Ondansetron Inj 2 Mg/Ml Inj 2 Ml) 4 mg IVP Q6H PRN; Protocol PRN Reason: NAUSEA OR VOMITING Stop: 10/31/24 20:49 Pantoprazole Sodium (Pantoprazole 40 Mg Tablet) 40 mg PO QDAY [facility] Stop: 11/01/24 08:59 Thiamine HCl (Thiamine 100 Mg Tablet) 100 mg PO BID [facility] Stop: 10/06/24 20:59 Discontinued Medications Sodium Chloride (Ns) 1,000 mls @ 999 mls/hr IV .Q1H1M ONE Stop: 10/01/24 18:55 Last Infusion: 10/01/24 20:02 Dose: Infused Sodium Chloride (Ns) 1,000 mls @ 999 mls/hr IV .Q1H1M ONE Stop: 10/01/24 19:13 Last Infusion: 10/01/24 20:03 Dose: Infused Sodium Chloride (Ns) 1,000 mls @ 999 mls/hr IV .Q1H1M ONE Stop: 10/01/24 21:10 Last Admin: 10/01/24 20:22 Dose: 999 mls/hr Thiamine HCl 100 mg/ Sodium (Chloride) 101 mls @ 202 mls/hr IV X1 ONE Stop: 10/01/24 20:39 Last Admin: 10/01/24 20:22 Dose: 202 mls/hr Ketorolac Tromethamine (Ketorolac Inj 30 Mg/Ml Vial) 30 mg IVP X1 ONE Stop: 10/01/24 18:14 Last Admin: 10/01/24 18:49 Dose: 30 mg Lorazepam (Lorazepam 0.5 Mg Tablet) 0.5 mg PO X1 ONE Stop: 10/01/24 17:50 Last Admin: 10/01/24 18:52 Dose: Not Given Lorazepam (Lorazepam 2 Mg/Ml Vial) 1 mg IVP X1 ONE Stop: 10/01/24 18:13 Last Admin: 10/01/24 18:49 Dose: 1 mg Lorazepam (Lorazepam 2 Mg/Ml Vial) 2 mg IVP X1 ONE Stop: 10/01/24 20:11 Last Admin: 10/01/24 20:22 Dose: 2 mg Metoprolol Tartrate (Metoprolol Tartrate 25 Mg Tablet) 100 mg PO X1 ONE Stop: 10/01/24 18:13 Last Admin: 10/01/24 18:53 Dose: 100 mg Ondansetron HCl (Ondansetron Inj 2 Mg/Ml Inj 2 Ml) 4 mg IVP X1 ONE; Protocol Stop: 10/01/24 18:14 Last Admin: 10/01/24 18:50 Dose: 4 mg Ondansetron HCl (Ondansetron Inj 2 Mg/Ml Inj 2 Ml) 4 mg IVP X1 ONE; Protocol Stop: 10/01/24 20:11 Last Admin: 10/01/24 20:20 Dose: 4 mg Assessment & Plan Plan 24-year-old male with past medical history of anxiety and alcohol use disorder who presented to the ED due to alcohol withdrawal. #Alcohol withdrawal Presented with palpitations, blurry vision, dizziness has been on a drinking binge for the past week and increased anxiety On my evaluation patient had already received Ativan and felt remarkable improvement in his symptoms Last CIWA: 15 from the ER Last drink 09/30/2024 Drinks 24 pack of beer daily ? Thiamine ? Folic acid ? CIWA protocol in place ? IV fluids Health Maintenance: Disposition: Telemetry, CIWA protocol Fluids: NS Feeding: Regular Thrombo prophylaxis: SCDs Gastric Ulcer prophylaxis: Pantoprazole CODE STATUS: Full code Case discussed with my attending Dr. Kendall Brown MD PGY-1 Disclaimer: Despite multiple revisions, due to the dictation software being used, the document bellow may not be free of grammatical errors including phonetic/typographic errors. However, this does not deter from our commitment to providing health care in the patient's best interest in mind.
[2024-10-01] MEDS: FOLIC ACID 1 MG TABLET PO (22:01)
[2024-10-01] MEDS: THIAMINE 100 MG TABLET PO (22:02)
[2024-10-01] MEDS: SODIUM CHLORIDE 0.9% 1000 ML 1,000 ML 75 ML IV (22:03)
[2024-10-02 01:20] VITALS: PULSE 86
[2024-10-02 01:27] VITALS: BP 125/87; PULSE 80; RESP 17; TEMP 36.7; O2SAT 99
[2024-10-02 04:00] VITALS: BP 110/58; PULSE 61; PULSE 65; RESP 13; TEMP 36; O2SAT 98
[2024-10-02 05:19] VITALS: BMI 26.8
[2024-10-02] MEDS: SODIUM CHLORIDE 0.9% 1000 ML 1,000 ML 75 ML IV (05:56)
[2024-10-02 06:10] LABS: Basophils % (Auto) 1 % (0-2.5); Eosinophils % (Auto) 0 % (0-10); Hematocrit 41.8 % (41.0-53.0); Hemoglobin 14.4 g/dL (13.5-16.0); Immature Granulocytes % (Auto) 0 % (0-0); Immature Granulocytes Auto 0.01 Thou/mm3 (0.00-0.00); Lymphocytes # (Auto) 1.4 Thou/mm3 (1.0-4.8); Lymphocytes % (Auto) 27 % (10-50); Mean Corpuscular HGB Conc 34.4 g/dl (31.0-37.0); Mean Corpuscular Volume 87 fL (80-100); Monocytes % (Auto) 19 % (0-12); Neutrophils # (Auto) 2.7 Thou/mm3 (1.8-7.7); Neutrophils % (Auto) 53 % (37-80); Nucleated Red Blood Cell % 0 /100 WBC (0); Platelet Count 200 Thou/mm3 (140-440); RDW Standard Deviation 40.8 fL (35.1-43.9); White Blood Count 5.1 Thou/mm3 (3.8-10.6)
[2024-10-02 06:33] LABS: Alanine Aminotransferase 17 U/L (10-49); Albumin, Serum 3.8 gm/dL (3.5-5.0); Albumin/Globulin Ratio 1.7 (1.2-2.2); Alkaline Phosphatase 64 U/L (46-116); Anion Gap 8 (7-16); Aspartate Amino Transferase 20 U/L (0-34); BUN/Creatinine Ratio 9 Ratio (12-20); Bilirubin,Total 0.6 mg/dL (0.3-1.2); Blood Urea Nitrogen 7 mg/dL (9-23); Calcium 8.6 mg/dL (8.3-10.6); Calcium (Corrected) 8.8 mg/dL (8.5-10.1); Carbon Dioxide 24.5 mMol/L (20.0-31.0); Chloride 107 mMol/L (98-107); Creatinine (Component) 0.8 mg/dL (0.6-1.3); Estimated Creatinine Clearance 135.4 mL/min (>60); Globulin 2.3 gm/dL (2.3-3.5); Glucose 102 mg/dL (74-106); Magnesium 2.2 mg/dL (1.6-2.6); Osmolality,Calculated 275 (275-295); Phosphorous 4.5 mg/dL (2.4-5.1); Potassium 4.8 mMol/L (3.4-5.1); Sodium 139 mMol/L (136-145); Total Protein 6.1 gm/dL (5.7-8.2); eGFR > 60 See Note
[2024-10-02 07:35] VITALS: BP 131/73; PULSE 91; RESP 16; TEMP 36.2; O2SAT 98
[2024-10-02 08:00] VITALS: PULSE 91
[2024-10-02] MEDS: LORazepam 2 MG/ML VIAL 0.5 MG IV (08:29)
[2024-10-02] MEDS: PANTOPRAZOLE 40 MG TABLET PO (08:30)
[2024-10-02] MEDS: FOLIC ACID 1 MG TABLET PO (08:30)
[2024-10-02] MEDS: THIAMINE 100 MG TABLET PO (08:30)
--- NOTE | 2024-10-02 09:00 | PC.SS ---
Patient Claudio Tse is a 24 Year old male admitted for Alcohol Withdrawal. SS met with patient at bedside to discuss discharge plan and verify demographic information, patient appeared to be alert and oriented to time,place and situation. he reports she lives at home with his mother, Gloria Marcial who he reports is his surrogate decision maker, [phone]. Patient reports he does not utilize any source of DME to assist with ambulation. Patient is able to complete all ADL's independently. [facility], PCP is Binh Brown. At time of discharge patient will return back home, [facility]. Next of kin: Mother, Gloria Marcial [phone] Discharge Plan: Home PCP: Binh Brown
--- NOTE | 2024-10-02 10:30 | ESDS_ITS ---
Planned Discharge Date 10/02/24 DS: Providers Provider Date of admission: 10/01/24 20:50 Primary care physician: Binh Brown MD Admitting Provider: Trent Argueta MD Attending Provider on Admission: Ramses Valle MD Attending Provider on DC: Geronimo Lizama MD Discharging Provider: Geronimo Lizama MD DS: Diagnosis Problem List Completed Was Problem List Reviewed/Reconciled?: Yes Hospital Course Hospital Course Hospital course: Claudio Tse is a 24-year-old male with past medical history of alcohol use disorder who presented to the ED due to withdrawal-like symptoms, including dizziness, palpitations, and blurry vision. Stated he drank at least 24-pack of beer daily for the last week and last drink was two days prior to admission. Of note, stated that he felt like he may have been experiencing an anxiety attack due to palpitations. In ED, he was given ativan due to CIWA score of 15 ad that his symptoms improved afterwards. Overnight, he did not require additional ativan but did receive a small dose of 0.5 in AM for CIWA score of 8. However, given that patient denied long-standing history of alcohol use and likely had binge-drinking episode, vital signs stable and HR no wnl and CBC and chem panel were unremarkable, he was deemed stable for discharge with strong recommendation to abstain from alcohol consumption. Diagnoses during admission: #Alcohol withdrawal #Anxiety Discharge instructions: ? Continue taking all other home medications as prescribed ? Follow-up with PCP within 1-2 weeks of discharge ? If you do not have a PCP, you can follow-up at the [facility] (you can call [phone] to make an appointment) ? If you wish to follow-up with Dr. Lizama, schedule appointment on Tuesday afternoons ? Return to ED if symptoms worsen or recur ----- Plan discussed with attending physician Dr. Leonard Lizama MD PGY-1 Internal Medicine Time Spent with Patient Time attestation: Total time spent providing and/or coordinating discharge services: Time spent: Greater than 30 minutes Exam Vital Signs Temp Pulse Resp BP Pulse Ox O2 Del Method 97.2 F 91 16 131/73 H 98 Room Air 10/02/24 07:35 10/02/24 08:00 10/02/24 07:35 10/02/24 07:35 10/02/24 07:35 10/02/24 07:35 Narrative Exam General: AOx3, no acute distress, able to speak full sentences HEENT: NC/AT, mucous membranes moist, bilateral sclera anicteric Cardiovascular: regular rate and rhythm, S1/S2 present, no murmurs appreciated Pulmonary: clear to auscultation bilaterally, no rales/rhonchi/wheezes Abdominal: soft, non-tender, non-distended, no rebound/guarding, normal bowel sounds present Musculoskeletal: normal ROM, no peripheral edema Skin: warm and dry, intact, no rashes Neuro: CN II-XII intact, no focal deficits Discharge Plan Plan Patient Disposition: HOME (Self Care) Care Plan Goals: ? Continue taking all other home medications as prescribed ? Follow-up with PCP within 1-2 weeks of discharge ? If you do not have a PCP, you can follow-up at the [facility] (you can call [phone] to make an appointment) ? If you wish to follow-up with Dr. Lizama, schedule appointment on Tuesday afternoons ? Return to ED if symptoms worsen or recur Prescriptions/Referrals Prescriptions/Med Rec: Discontinued naproxen 500 mg tablet 500 mg PO BID PRN (Reason: pain) Qty: 30 0RF metformin 500 mg tablet 500 mg PO BID Qty: 30 1RF Paxlovid 300 mg (150 mg x 2)-100 mg tablets,dose pack See Rx Instructions .ROUTE .COMPLEX Qty: 30 0RF Rx Instructions: take TWO 150 mg tablets of nirmatrelvir with ONE 100 mg tablet of ritonavir twice daily for 5 days ibuprofen 600 mg tablet 600 mg PO Q8H PRN (Reason: fever or pain) Qty: 30 0RF cephalexin 500 mg capsule 500 mg PO QID Qty: 40 0RF potassium chloride 20 mEq tablet extended release 40 meq PO BID Qty: 10 0RF ibuprofen 800 mg tablet 800 mg PO Q8H PRN (Reason: pain) Qty: 20 0RF ondansetron 4 mg tablet,disintegrating 4 mg PO Q8H PRN (Reason: nausea and vomiting) Qty: 7 0RF lorazepam [Ativan] 0.5 mg tablet 0.5 mg PO BID PRN (Reason: anxiety) Qty: 15 0RF ibuprofen 800 mg tablet 800 mg PO Q6H PRN (Reason: pain) Qty: 10 0RF ondansetron HCl 4 mg tablet 4 mg PO Q6H PRN (Reason: nausea and vomiting) Qty: 10 0RF ibuprofen [IBU] 800 mg tablet 800 mg PO TID PRN (Reason: fever or pain) Qty: 30 0RF Referrals: Binh Brown MD [Primary Care Provider] - Patient/Caregiver Discharge Instructions Education Materials: Social Drinking vs Problem Drinking, Alcohol Withdrawal: What to Expect Print Language: Vietnamese Stand Alone Forms: [employer] Award Info., Patient Portal Info Letter Discharge Order Discharge Orders: Discharge (Routine); Ordered 10/02/24 Ordered By: Geronimo Conway Mejoey Quality Discharge Quality Measures VTE prophylaxis Attestestation MD Attestation I have examined the patient, reviewed labs and imaging findings, discussed the case with the resident(s), and reviewed entered orders. I agree with the plan of care as outlined in this note. Time Spent: [address] Leonard MD
[2024-10-02 11:34] VITALS: BP 113/71; PULSE 78; RESP 16; TEMP 36.2; O2SAT 98
== END 2024-10-02 11:43 | disposition home or self-care (01) | DRG 775 ==
LOC: SERX 21:00 → SERHOLD 21:13 → S2NX 10-02 01:14
PROVIDERS: Nurse Practitioner Primary Care; Student in an Organized Health Care Education/Training Program; Admitting Provider Student in an Organized Health Care Education/Training Program; Emergency Provider Emergency Medicine; PCP Family Medicine; Visit Provider Student in an Organized Health Care Education/Training Program
DX: F10.139 Alcohol abuse with withdrawal, unspecified (principal); R00.2 Palpitations; R42 Dizziness and giddiness; H53.8 Other visual disturbances
CPT/HCPCS: 36415; 71046; 80053; 80307; 80320; 80329; 82150; 82248; 82550; 83690; 83735; 84100; 84439; 84443; 84484; 85025; 85610; 85730; 93005; 96361; 96365; 96375; 96376; 99291; J1885; J2060; J2405; J3411; J7030; J7050; A9270; G0480

== ENCOUNTER 2024-11-09 05:03 | Emergency (ER) | payer MEDICAID, SELFPAY ==
[2024-11-09 05:05] VITALS: BMI 24.4
[2024-11-09 05:17] VITALS: BP 132/88; PULSE 93; RESP 17; TEMP 36.8; O2SAT 99
--- NOTE | 2024-11-09 05:32 | EDRME_ITS ---
Rapid Medical Screening Exam [facility] Arrival date/time: 11/09/24 05:03 24M with history of alcohol use (sober for 1 month) presents to ED with generalized itchiness after getting a new tattoo. Separately, patient has also had some non-bloody diarrhea. Patient is more concerned about the itching. Chief Complaint: Allergic Reaction Vital signs: Vital Signs Temperature 98.2 F 11/09/24 05:17 Pulse Rate 93 11/09/24 05:17 Respiratory Rate 17 11/09/24 05:17 Blood Pressure 132/88 H 11/09/24 05:17 Pulse Oximetry (%) 99 11/09/24 05:17 Oxygen Delivery Method Room Air 11/09/24 05:17
[2024-11-09] MEDS: DEXAMETHASONE SOD PHOS INJ 10 MG/ML VIAL PO (05:41)
--- NOTE | 2024-11-09 07:56 | PC.NURSE ---
Called pt back to revital and review. Pt did not answer at this time.
--- NOTE | 2024-11-09 08:07 | PC.NURSE ---
Called pt for the 2nd time to be revital and no answer at this time.
--- NOTE | 2024-11-09 10:26 | PC.NURSE ---
Called pt bacl to be reviewed by provider. Pt did not answer at this time.
== END 2024-11-09 10:35 | disposition left against medical advice (07) ==
LOC: SERX 06:25
PROVIDERS: Emergency Provider Emergency Medicine; PCP Family Medicine
DX: T65.6X1A Toxic effect of paints and dyes, not elsewhere classified, accidental (unintentional), initial encounter (principal); L23.4 Allergic contact dermatitis due to dyes; R19.7 Diarrhea, unspecified; Z53.29 Procedure and treatment not carried out because of patient's decision for other reasons
CPT/HCPCS: 99283; J1100; A9270

== ENCOUNTER 2025-03-24 20:46 | Emergency (ER) | payer MEDICAID, SELFPAY ==
[2025-03-24 20:49] VITALS: BMI 25.8
[2025-03-24 21:00] VITALS: BP 138/90; PULSE 105; RESP 18; TEMP 36.8; O2SAT 97
--- NOTE | 2025-03-24 21:54 | EDNOTE_ITS ---
ED Dental RME/HPI General Chief complaint: Dental/Oral/Throat Stated complaint: SORE THROAT Time Seen by Provider: 03/24/25 20:51 Arrival date/time: 03/24/25 20:46 This is a case of 24-year-old male with no medical history came in in the emergency room due to sore throat and reddish-white spots on the tongue and buccal mucosa which started 2 days prior to arrival in the emergency room patient due to persistence of the symptoms this patient decided to start consult her in the emergency room no shortness of breath no rash no facial or throat swelling no drooling of saliva patient can speak full sentences Limitations: no limitations Related Data Previous Rx's ?Medication ?Instructions ?Recorded lidocaine HCl 2 % mucosal solution 10 ml PO Q4HR PRN m outh pain #100 03/24/25 (Lidocaine Viscous) mL nystatin 100,000 unit/mL oral 500,000 unit (5 mL) PO Q ID 5 days 03/24/25 suspension #100 mL valacyclovir 1 gram tablet 1,000 mg PO BID 10 days #20 tabs 03/24/25 Allergies Allergy/AdvReac Type Severity Reaction Status Date / Time No Known Allergies Allergy Verified 03/24/25 20:49 Review of Systems Review of Systems Systems Reviewed: All systems reviewed, normal except as documented Constitutional Constitutional: Reports system reviewed and no additional complaints, except as documented and Reports as per HPI ENT Ears, Nose, Mouth, and Throat: Reports system reviewed and no additional complaints, except as documented and Reports as per HPI Cardiovascular Cardiovascular: Reports system reviewed and no additional complaints, except as documented and Reports as per HPI Respiratory Respiratory: Reports system reviewed and no additional complaints, except as documented and Reports as per HPI Gastrointestinal Gastrointestinal: Reports system reviewed and no additional complaints, except as documented and Reports as per HPI Musculoskeletal Musculoskeletal: Reports system reviewed and no additional complaints, except as documented and Reports as per HPI Neurologic Neurologic: Reports system reviewed and no additional complaints, except as documented and Reports as per HPI Past Medical History Past Medical History CARDIAC: Negative Congestive Heart Failure RESPIRATORY: Negative Chronic Obstructive Pulmonary Disease (COPD) GENITOURINARY: Negative Renal Disease ENDOCRINE: Negative Diabetes Mellitus Type 1 or Diabetes Mellitus Type 2 PSYCHO/SOCIAL: Positive Anxiety Social History SMOKING STATUS: Never smoker ED Exam General Limitations: Present no limitations General appearance: Present alert, in no apparent distress and other (Patient is awake alert oriented not in distress nontoxic looking well-hydrated well- nourished) Head Head exam: Present atraumatic, normocephalic and normal inspection Eye Eye exam: Present normal appearance, PERRL and EOMI ENT ENT exam: Present normal exam, normal oropharynx, mucous membranes moist and other (Noted whitish-reddish spot on upper buccal mucosa and tongue suggestive of stomatitis no swelling of the tongue no ulcer no abscess no cellulitis tonsils normal exam pharynx red no drooling of saliva no peritonsillar abscess no hoarseness of) Expanded ENT Exam Mouth exam: Present tongue normal (White spot on the tongue); Absent drooling, trismus, lip swelling, tongue elevation or tongue swelling Teeth exam: Present normal inspection Throat exam: Present normal inspection; Absent tonsillar erythema, tonsillomegaly, tonsillar exudate, R peritonsillar mass, L peritonsillar mass or muffled voice Neck Neck exam: Present normal inspection, full ROM and trachea midline; Absent tenderness, meningismus, lymphadenopathy or thyromegaly Chest Chest inspection: Present normal inspection and symmetric chest wall rise; Absent tenderness Respiratory Respiratory exam: Present normal lung sounds bilaterally; Absent respiratory distress, wheezes, stridor, accessory muscle use or prolonged expiratory phase Cardiovascular Cardiovascular exam: Present regular rate, normal rhythm and normal heart sounds; Absent bradycardia, tachycardia, irregular rhythm, systolic murmur or diastolic murmur Abdominal Exam Abdominal exam: Present soft and normal bowel sounds; Absent distention, tenderness, guarding, rebound, rigidity, hyperactive bowel sounds, hypoactive bowel sounds or organomegaly Extremities Exam Extremities exam: Present normal inspection and full ROM Back Exam Back exam: Present normal inspection and full ROM Neurological Exam Neurological exam: Present alert, oriented X3, CN II-XII intact, normal gait and reflexes normal; Absent motor sensory deficit Psychiatric Psychiatric exam: Present normal affect and normal mood Skin Skin exam: Present warm, dry, intact, normal color and other (Excellent skin turgor) Course Quality Measures none Orders Category Date Time Status Bedside STREP Test NOW Care 03/24/25 21:02 Completed Vital Signs Vital signs: Vital Signs Temperature 98.3 F 03/24/25 21:00 Pulse Rate 105 H 03/24/25 21:00 Respiratory Rate 18 03/24/25 21:00 Blood Pressure 138/90 H 03/24/25 21:00 Pulse Oximetry (%) 97 03/24/25 21:00 Oxygen Delivery Method Room Air 03/24/25 21:00 Oxygen saturation is 97% on room Dental / Oral MDM Narrative MDM Narrative:: This is a case of 24-year-old male with no medical history came in in the emergency room due to sore throat and reddish-white spots on the tongue and buccal mucosa which started 2 days prior to arrival in the emergency room patient due to persistence of the symptoms this patient decided to start consult her in the emergency room no shortness of breath no rash no facial or throat swelling no drooling of saliva patient can speak full sentences physical examination patient is awake alert oriented not in distress nontoxic looking well-hydrated well-nourished noted a reddish-whitish spot on the upper buccal mucosa and tongue suggestive of stomatitis patient rapid strep is negative noted tonsils are not swollen no redness no exudate but pharynx is red no drooling of saliva no peritonsillar abscess no Hu's angina no hoarseness of voice no muffled voice patient will follow-up with PCP in 2 days for reevaluation he was prescribed with valacyclovir and nystatin suspension for stomatitis worsening symptoms or any emergent condition return precaution in the emergency room was advised I do not think patient is having allergic reaction because there is no shortness of breath no rash no itching no facial or throat swelling only lesion on the mouth Patient was discharged with comfortable condition walking with stable gait. Patient verbalized no further complains explained diagnosis and answered patient question. Patient is comfortable with the proposed management plan including the need to follow up with his/her primary care physician and any specialist if applicable Discussed patient for any urgent condition or worsening sx, He/She needed to go to emergency room immediately or call 911. Patient acknowledge the responsibility to follow up as instructed and to monitor her/his symptoms. For any persistence of the symptoms for more than 3-5 days return precaution advised. Discussed the result of the test and was given printed discharge instr uction Patient data External records reviewed:: [facility] previous records Clinical information provided by:: family Social determinants that could affect healthcare access:: none Patient has the following chronic illnesses:: None How is presenting disease/condition affected by chronic disease/condition?: no chronic disease Evaluation data The following diagnostics were reviewed and interpreted by me:: lab results Lab and/or radiology exams considered but not ordered:: Reviewed Interpretation Summary: Reviewed Medications / Prescriptions Medications or Prescriptions considered but not ordered:: Given Medication administrations:: Given Consultations Consultation(s) initiated? (list below): No Diagnosis Dental Differential Diagnosis: dental caries, toothache, dental abscess and aphthous ulcer Most likely diagnosis given after review of the tests above:: Stomatitis acute pharyngitis Admission Indicated Admission indicated?: not indicated Explain why admission is indicated or not indicated:: Not indicated Admission Request Was there a request for admission?: No Admission Attestation Admission request attestation: Not indicated Disposition Plan Disposition Plan: Discharge Discharge Attestation Discharge Attestation: The patient and all family members were given an opportunity to ask questions and understood the discharge instructions. Discharge instructions specifically effects, indications for sooner follow up or return to the emergency department, and the expected course of current diagnosis. Patient condition: Stable Discharge Plan Plan Patient Disposition: HOME (Self Care) Patient condition on transfer: Stable Prescriptions/Referrals Prescriptions/Med Rec: New valacyclovir 1 gram tablet 1,000 mg PO BID 10 Days Qty: 20 0RF nystatin 100,000 unit/mL suspension 500,000 unit PO QID 5 Days Qty: 100 0RF Rx Instructions: administer 1/2 of dose in each side of the mouth lidocaine HCl [Lidocaine Viscous] 2 % solution 10 ml PO Q4HR PRN (Reason: mouth pain) Qty: 100 0RF Problem List Clinical Impression: Stomatitis, Acute pharyngitis Patient/Caregiver Discharge Instructions Education Materials: When You Have a Sore Throat, Self-Care for Sore Throats, Understanding Canker Sores, ED Canker Sore Additional Instructions: Follow-up with your primary care physician in 2 days for reevaluation worsening symptoms or any emergent concern call 911 or go to the nearest emergency room take your medication as directed oral care is advised warm saline gargle is also advised Print Language: Bengali Stand Alone Forms: Tanvi Award Info., Work/School Release, Patient Portal Info Letter PA/ASSURANCE OFFICER Supervising Physician PA/ASSURANCE OFFICER Supervising Physician: Dr. Cooper
== END 2025-03-24 21:45 | disposition home or self-care (01) ==
LOC: SERX 21:51
PROVIDERS: Emergency Provider Emergency Medicine
DX: J02.9 Acute pharyngitis, unspecified (principal); K12.1 Other forms of stomatitis
CPT/HCPCS: 87651; 99281